=== PATIENT | female | born 1965 | race Caucasian/White ===

== ENCOUNTER 2017-02-27 09:40 | Outpatient (CLI) | payer MEDICARE, OTHER ==
[~2017-02-27 09:40] MED LIST: AMLO5TAB2 GT; ATOR10TA GT; ATOR20TA GT; CARV12.52 GT; CLON0.1T GT; CLON0.1T14 GT; HEPA500013 SQ; Hydralazine Hcl GT; INSU100I19 SQ; INSU100V28 IJ; LEVE100S GT; LOSA50TA21 GT; Losartan Potassium GT; METO25TA20 GT; NUT.237L67 GT; OMEP20CA10 GT
== END 2017-02-27 23:59 | disposition home or self-care (01) ==
LOC: CT 09:40
DX: S42.391D Other fracture of shaft of right humerus, subsequent encounter for fracture with routine healing (principal); S72.492D Other fracture of lower end of left femur, subsequent encounter for closed fracture with routine healing; M85.88 Other specified disorders of bone density and structure, other site; X58.XXXD Exposure to other specified factors, subsequent encounter
CPT/HCPCS: 73200-TC; 73700-TC

== ENCOUNTER 2017-12-13 13:33 | Emergency (ER) | payer MEDICARE, OTHER ==
[~2017-12-13] VITALS: Ht 149.9 cm; Wt 95.3 kg
[2017-12-13 13:49] VITALS: BP 120/45
--- NOTE | 2017-12-13 13:50 | NUR ---
BIBPA DT LOW BLOOD PRESSURE. PATIENT RECEIVED NOT IN DISTRESS,. VENT AND TRACHE DEPENDENT. AFEBRILE. VSS
[2017-12-13] MEDS ORDERED: CEFEPIME 1 GM in IV D5W 50 ML IV ONE (14:00)
[2017-12-13] MEDS ORDERED: IV NS 0.9% 1,000 ML BAG IV ONE (14:00)
[2017-12-13 14:04] LABS: BASOPHILS % (AUTO) 0.3 % (0.0-2.0); EOSINOPHILS % (AUTO) 0.5 % (0.0-6.0); HEMATOCRIT 32 % (33-45); HEMOGLOBIN 10.4 g/dL (11.5-14.8); LYMPHOCYTES # (AUTO) 1.3 /CMM (0.8-4.8); LYMPHOCYTES % (AUTO) 14.9 % (20.0-44.0); MEAN CORPUSCULAR HEMOGLOBIN 32 PG (26.0-33.0); MEAN CORPUSCULAR HGB CONC 33 g/dl (31.0-36.0); MEAN CORPUSCULAR VOLUME 98 fL (82-100); MONOCYTES % (AUTO) 11.6 % (2.0-12.0); NEUTROPHILS # (AUTO) 6.4 /CMM (1.8-8.9); NEUTROPHILS % (AUTO) 72.7 % (43.0-81.0); PLATELET COUNT (AUTO) 101 /CMM (150-450); RED BLOOD CELL COUNT(AUTO) 3.21 MIL/uL (4.0-5.2); WHITE BLOOD COUNT (AUTO) 8.7 K/uL (4.3-11.0)
[2017-12-13 14:13] LABS: CALCIUM, SERUM 8.8 mg/dL (8.5-10.1); CARBON DIOXIDE 24 mmol/L (21-32); CHLORIDE 96 mmol/L (98-107); CREATININE 4.2 mg/dL (0.6-1.3); GLUCOSE 159 mg/dL (74-106); POTASSIUM 3.9 mmol/L (3.5-5.1); SODIUM SERUM 132 mmol/L (136-145); UREA NITROGEN, BLOOD 77 mg/dL (7-18)
[2017-12-13 14:18] LABS: ALANINE AMINOTRANSFERASE 32 U/L (12-78); ALBUMIN 3.2 g/dL (3.4-5.0); ALKALINE PHOSPHATASE 327 U/L (46-116); ASPARTATE AMINOTRANSFERASE 21 U/L (15-37); BILIRUBIN,DIRECT 0.1 mg/dL (0.0-0.2); BILIRUBIN,TOTAL 0.4 mg/dL (0.2-1.0); INR 0.98 (0.85-1.15); TOTAL PROTEIN, SERUM 7.8 g/dL (6.4-8.2)
[2017-12-13 14:20] LABS: TROPONIN I < 0.017 ng/mL (0.00-0.056)
[2017-12-13] MEDS ORDERED: LOSA25TA13 GT (14:46)
[2017-12-13] MEDS ORDERED: AMIN30LI4 GT (14:46)
[2017-12-13] MEDS ORDERED: ERGO500014 GT (14:46)
[2017-12-13] MEDS ORDERED: CHOL4PAC9 GT (14:46)
[2017-12-13] MEDS ORDERED: AMLO5TAB2 GT (14:46)
[2017-12-13] MEDS ORDERED: HYDR-552 GT (14:46)
[2017-12-13] MEDS ORDERED: HYDR-4077 GT (14:46)
[2017-12-13] MEDS ORDERED: BLOO-668 IN (14:46)
[2017-12-13] MEDS ORDERED: METO25TA3 GT (14:46)
[2017-12-13] MEDS ORDERED: ATOR10TA GT (14:46)
[2017-12-13] MEDS ORDERED: INSU100V7 SQ (14:46)
[2017-12-13] MEDS ORDERED: IPRA3AMP23 IH ×2 (14:46)
[2017-12-13] MEDS ORDERED: VIT1TABL44 GT (14:46)
[2017-12-13] MEDS ORDERED: INSU100V3 SQ (14:46)
[2017-12-13] MEDS ORDERED: SENN-167 GT (14:46)
--- NOTE | 2017-12-13 15:24 | NUR ---
[facility]FFIN [facility]ON[facility] PLACED TRANSPORT FOR WILL CALL WITH RT TRIP NUMBER [id number]
--- NOTE | 2017-12-13 15:31 | NUR ---
CALLED [facility] WILL CALL FOR RT TRANSPORT TO [facility] ETA 1700
--- NOTE | 2017-12-13 15:36 | NUR ---
TRANSPORTATION ETA 1700
[2017-12-13 15:43] LABS: APPEARANCE,URINE Turbid (CLEAR); BILIRUBIN,URINE SMALL (NEGATIVE); BLOOD, URINE Large Ery/uL (NEGATIVE); COLOR,URINE Brown (YELLOW); KETONES,URINE Negative (NEGATIVE); LEUKOCYTE ESTERASE ,URINE Large (NEGATIVE); NITRITE, URINE Negative (NEGATIVE); PROTEIN,URINE >=300 mg/dl (NEGATIVE); UGLUCOSE 250 MG/DL mg/dL (NEGATIVE); UROBILINOGEN,URINE 0.2 EU/dL (0.2)
[2017-12-13 15:46] VITALS: BP 120/79
[2017-12-13 16:52] LABS: BACTERIA,URINE Many /HPF (None Seen); SQUAMOUS EPITHELIAL CELL,UR Many /HPF (None Seen)
[2017-12-13 17:26] VITALS: BP 120/79
--- NOTE | 2017-12-13 17:26 | NUR ---
PATIENT WAS PICKED UP BY [facility]. VSS
== END 2017-12-13 17:27 | disposition home or self-care (01) ==
LOC: ER 13:34
DX: I13.2 Hypertensive heart and chronic kidney disease with heart failure and with stage 5 chronic kidney disease, or end stage renal disease (principal); N18.6 End stage renal disease; N17.9 Acute kidney failure, unspecified; J96.10 Chronic respiratory failure, unspecified whether with hypoxia or hypercapnia; G93.40 Encephalopathy, unspecified; E11.22 Type 2 diabetes mellitus with diabetic chronic kidney disease; Z99.2 Dependence on renal dialysis; Z98.890 Other specified postprocedural states; Z88.2 Allergy status to sulfonamides; Z79.4 Long term (current) use of insulin; Z89.511 Acquired absence of right leg below knee; Z93.0 Tracheostomy status
CPT/HCPCS: 36415; 51701; 71045; 80048; 80076; 81001; 83605; 84484; 85025; 85730; 87040 ×2; 93005; 96365; 99285; A4606; J0692; J7030; J7060; 81000-TC; 87086-TC; Z7610

== ENCOUNTER 2018-10-21 20:18 | Inpatient (IN) | payer MEDICARE, OTHER ==
[~2018-10-21] VITALS: Ht 160 cm; Wt 111.6 kg
[~2018-10-21 20:18] MED LIST changes: +AMIN30LI4 GT; -AMLO5TAB2 GT; +AMLO5TAB9 GT; -ATOR20TA GT; +BLOO-668 IN; -CARV12.52 GT; +CHOL4PAC9 GT; -CLON0.1T14 GT; +ERGO500014 GT; -HEPA500013 SQ; +HYDR-4077 GT; +HYDR-4384 GT; -Hydralazine Hcl GT; -INSU100I19 SQ; -INSU100V28 IJ; +INSU100V3 SQ; +INSU100V7 SQ; +IPRA3AMP23 IH; +LOSA25TA27 GT; -LOSA50TA21 GT; -Losartan Potassium GT; -METO25TA20 GT; +METO25TA3 GT; -OMEP20CA10 GT; +SENN-168 GT; +VIT1TABL44 GT
--- NOTE | 2018-10-21 20:23 | NUR ---
PT BIBPA FROM [facility] FOR LOW BP; PER REPORT PT ONLY FINISHED 1HR OF DIALYSIS, GIVEN BOLUS OF NS; BP IO 80'S; PT AAOX0, -MD YOLANDA AT FOR EVAL
--- NOTE | 2018-10-21 20:51 | NUR ---
RECEIVED PT ON MECH VENT CHIP WELL NO SOB NOTED AT THIS TIME ON CURRENT SETTING WILL CONTINUE TO MONITOR Addendum: 10/21/18 at 2051 by NAZARIO PRABHAKAR RT Amended: Links added.
[2018-10-21] MEDS ORDERED: IV NS 0.9% 500 ML BAG IV ONE (21:00)
[2018-10-21] MEDS ORDERED: AZTREONAM 2 G in IV NS 0.9% 100 ML IV ONE (21:00)
[2018-10-21] MEDS ORDERED: CEFEPIME 1 GM in IV D5W 50 ML IV ONE (21:00)
[2018-10-21 21:34] LABS: BASOPHILS # (AUTO) 0.1 /CMM (0.0-0.2); BASOPHILS % (AUTO) 0.4 % (0.0-2.0); EOSINOPHILS % (AUTO) 1.3 % (0.0-6.0); HEMATOCRIT 24 % (33-45); HEMOGLOBIN 7.9 g/dL (11.5-14.8); LYMPHOCYTES # (AUTO) 1.2 /CMM (0.8-4.8); LYMPHOCYTES % (AUTO) 10.2 % (20.0-44.0); MEAN CORPUSCULAR HGB CONC 33 g/dl (31.0-36.0); MEAN CORPUSCULAR VOLUME 99 fL (82-100); MONOCYTES # (AUTO) 0.7 /CMM (0.1-1.30); MONOCYTES % (AUTO) 6.2 % (2.0-12.0); NEUTROPHILS # (AUTO) 9.5 /CMM (1.8-8.9); NEUTROPHILS % (AUTO) 81.9 % (43.0-81.0); PLATELET COUNT (AUTO) 179 /CMM (150-450); WHITE BLOOD COUNT (AUTO) 11.6 K/uL (4.3-11.0)
[2018-10-21 21:54] LABS: CALCIUM, SERUM 8.5 mg/dL (8.5-10.1); CARBON DIOXIDE 20 mmol/L (21-32); CHLORIDE 101 mmol/L (98-107); CREATININE 4.7 mg/dL (0.6-1.3); GLUCOSE 277 mg/dL (74-106); POTASSIUM 4.4 mmol/L (3.5-5.1); SODIUM SERUM 136 mmol/L (136-145); UREA NITROGEN, BLOOD 79 mg/dL (7-18)
[2018-10-21 22:00] LABS: ALANINE AMINOTRANSFERASE 22 U/L (12-78); ALBUMIN 2.6 g/dL (3.4-5.0); ALKALINE PHOSPHATASE 185 U/L (46-116); ASPARTATE AMINOTRANSFERASE 18 U/L (15-37); BILIRUBIN,DIRECT 0.1 mg/dL (0.0-0.2); BILIRUBIN,TOTAL 0.5 mg/dL (0.2-1.0); TOTAL PROTEIN, SERUM 6.8 g/dL (6.4-8.2)
--- NOTE | 2018-10-21 22:09 | NUR ---
CALLED NURSING [facility] FOR TELE BED
--- NOTE | 2018-10-21 22:10 | NUR ---
TALISHA PICC LINE NURSE CALLED. ETA [id number]
--- NOTE | 2018-10-21 22:11 | NUR ---
CALLED [facility], PAGED DR THOMAS
[2018-10-21 22:24] LABS: OCCULT BLOOD STOOL NEGATIVE (NEGATIVE)
--- NOTE | 2018-10-21 22:34 | NUR ---
REPORT GIVEN TO KALINA CLEMENT FOR KIAH
[2018-10-21 22:45] VITALS: BP 79/57
--- NOTE | 2018-10-21 23:00 | NUR ---
POLICE GUARD NOTE PATIENT ARRIVED ON UNIT FROM ER IN [facility] OBTUNDED, NON VERBAL, OPENS EYES. PATIENT NOTED TO HAVE 20 G IV IN ABDOMEN PATIENT INTACT. MD AWARE AND ORDERED PICC LINE INSERTIONS. TALISHA SIMON ARRIVED AND PLACED TRIPLE LUMEN MIDLINE. PATIENT BATHED MEPILEX APPLIED TO SACRUM. PATIENT WAS SR ON THE TELE MONITOR HR 91. PATIENT BREATHING EVEN AND UNLABORED TOLERATING RX VENT SETTINGS. NO S/S OF RESP DISTRESS. PATIENT NOTED TO BE HYPOTENSIVE MD NOTIFIED PENDING ORDER. BED IN LOWEST LOCKED POSITION, SEIZURE PRECAUTIONS IN PLACE. RN WILL CONTINUE TO MONITOR GIVE CARE ORDERED.
--- NOTE | 2018-10-21 23:05 | NUR ---
PT TRANSPORTED TO 1ST FLOOR VIA [facility] PROTOCOL
[2018-10-21] MEDS ORDERED: NEPRO VAN 237 ML CAN GT SCH (23:30)
[2018-10-21] MEDS ORDERED: DEXTROSE 50%-WATER 50 ML DISP.SYRIN IV PRN (23:30)
[2018-10-21] MEDS ORDERED: IV NS 0.9% 500 ML IV ONE (23:30)
[2018-10-22] VITALS (11 sets, daily range): BP systolic 93–146; BP diastolic 37–80
--- NOTE | 2018-10-22 00:01 | NUR ---
ANDREW HOGAN MD NOTIFIED OF HYPOTENSION 500 ML BOLUS ORDERED Addendum: 10/22/18 at 0004 by KALINA VALDEZ RN Amended: Links added. Addendum: 10/22/18 at 0053 by KALINA VALDEZ RN BP RECHECKED POST ADMINISTRATION 114/37
[2018-10-22] MEDS ORDERED: ACETAMINOPHEN LIQUID 325 MG/10.1 ML UDC GT PRN (00:30)
[2018-10-22] MEDS ORDERED: MORPHINE SULFATE INJ 2 MG/ML DISP.SYRIN IV PRN (00:30)
[2018-10-22] MEDS ORDERED: ONDANSETRON HCL/PF 4 MG/2 ML VIAL IVP PRN (00:30)
[2018-10-22] MEDS: IPRATROPIUM NEB FS 0.5 MG/2.5 ML AMPUL.NEB NEB SCH ×4 (00:50→20:36)
[2018-10-22] MEDS ORDERED: PIPERACILLIN /TAZOBACTAM 2.25 G VIAL IV ONE (00:55)
[2018-10-22] MEDS: BLOOD SUGAR DIAGNOSTIC 1 EACH STRIP IN SCH ×4 (00:57→17:31)
[2018-10-22] MEDS ORDERED: PIPERACILLIN /TAZOBACTAM 2.25 G in IV D5W 50 ML IV ONE (01:00)
[2018-10-22] MEDS ORDERED: NEPRO 1,000 ML BOTTLE GT PRN (01:00)
--- NOTE | 2018-10-22 01:15 | NUR ---
ENVIRONMENTAL SERVICES SUPERVISOR NOTE LAB CALLED TO REPORT CRITICAL LACTIC ACID 2.6, TRENDING DOWN FROM 4 MD WILLIAM AWARE NO NEW ORDERS GIVEN
[2018-10-22] MEDS: NEPRO 1,000 ML BOTTLE GT PRN (01:29)
[2018-10-22] MEDS: INSULIN REGULAR, HUMAN 100 UNIT/ML 3 ML VIAL SQ PRN ×4 (01:41→17:48)
--- NOTE | 2018-10-22 06:33 | NUR ---
STROKE PROGRAM COORDINATOR NOTE PATIENT TOLERATED THE NIGHT WELL, BP WNL AFTER 500 ML BOLUS. PATIENT TEMP WNL. HR 75 SR WITH PVC ON THE MONITOR. RN WILL ENDORSE TO AM POC FOR KIAH.
[2018-10-22 07:04] LABS: ALBUMIN 2.6 g/dL (3.4-5.0); BILIRUBIN,TOTAL 0.3 mg/dL (0.2-1.0); CREATININE 5.1 mg/dL (0.6-1.3); MAGNESIUM 2.6 mg/dL (1.8-2.4); PHOSPHORUS 4.7 mg/dL (2.5-4.9); POTASSIUM 4.6 mmol/L (3.5-5.1); TOTAL PROTEIN, SERUM 6.6 g/dL (6.4-8.2)
[2018-10-22 07:15] LABS: BASOPHILS % (AUTO) 0.4 % (0.0-2.0); EOSINOPHILS % (AUTO) 0.4 % (0.0-6.0); LYMPHOCYTES # (AUTO) 0.9 /CMM (0.8-4.8); LYMPHOCYTES % (AUTO) 10.7 % (20.0-44.0); MEAN CORPUSCULAR HGB CONC 34 g/dl (31.0-36.0); MEAN CORPUSCULAR VOLUME 99 fL (82-100); MONOCYTES # (AUTO) 0.6 /CMM (0.1-1.30); MONOCYTES % (AUTO) 7.1 % (2.0-12.0); NEUTROPHILS # (AUTO) 6.6 /CMM (1.8-8.9); NEUTROPHILS % (AUTO) 81.4 % (43.0-81.0); PLATELET COUNT (AUTO) 143 /CMM (150-450); WHITE BLOOD COUNT (AUTO) 8.2 K/uL (4.3-11.0)
[2018-10-22 07:17] LABS: RED BLOOD CELL COUNT(AUTO) 1.99 MIL/uL (4.0-5.2)
[2018-10-22 07:21] LABS: HEMOGLOBIN 6.7 g/dL (11.5-14.8)
[2018-10-22 07:23] LABS: HEMATOCRIT 20 % (33-45)
--- NOTE | 2018-10-22 07:30 | NUR ---
ELECTRIC SHIPYARD OPERATOR AM NOTES RECEIVED PT IN BED, OBTUNDED, PORTEX 8 TO MECHANICAL VENT, SETTING ORDERED AC 12 TV 500 FIO2 35 P 5, BREATHING EQUAL AND UNLABORED, NOT IN ANY DISTRESS, SR HR 77 ON TELE MONITOR, NO SIGNS OF PAIN, LEFT ABDOMEN G 20 AND VISHNU TRIPLE LUMEN MIDLINE , BOTH FLUSHES WELL, BOTH SITES CLEAR, SEE NURSING FLOWSHEET FOR SKIN ISSUES. WITH RT BKA, NEPRO GTF AT 45 ML/HR ONGOING,ON AT 229 OFF AT 2029, CHECKED FOR PLACEMENT 20 ML RESIDUAL, BED LOW LOCKED, CALL LIGHT WITHIN REACH, WILL CONTINUE TO MONITOR.
[2018-10-22 07:35] LABS: THYROID STIMULATING HORMONE 4.388 uIU/mL (0.358-3.74)
[2018-10-22] MEDS: ALBUTEROL FS 2.5 MG/3 ML VIAL.NEB NEB SCH ×3 (07:44→20:38)
[2018-10-22 08:36] LABS: BAND % (MANUAL) 1 % (0.0-5.0); LYMPHOCYTES % (MANUAL) 11 % (16-48); NEUTROPHILS % (MANUAL) 81 (42-76)
[2018-10-22 08:37] LABS: EOSINOPHILS % (MANUAL) 1 % (0-4); MONOCYTES % (MANUAL) 6 % (0-11.0)
--- NOTE | 2018-10-22 08:50 | NUR ---
MARKING ROOM SUPERVISOR NOTES DR. CASTANON INFORMED RE CRITICAL RESULTS; HEMOGLOBIN 6.7, LACTIC ACID 2.8, TROPONIN 0.022 NEW ORDER TO REPEAT HEMOGLOBIN AT 1000
--- NOTE | 2018-10-22 09:30 | NUR ---
TRANSPORT TANK TECHNICIAN NOTES DUE MEDS GIVEN
[2018-10-22] MEDS: PIPERACILLIN /TAZOBACTAM 2.25 G in IV D5W 50 ML IV SCH ×2 (09:39→17:28)
[2018-10-22] MEDS: FAMOTIDINE (20 MG) 20 MG TABLET GT SCH (09:41)
[2018-10-22] MEDS: SENNOSIDES 8.6 MG TABLET GT SCH ×2 (09:41→17:28)
[2018-10-22] MEDS: VIT B CMPLX 3/FA/VIT C/BIOTIN 1 TAB TABLET GT SCH (09:41)
[2018-10-22] MEDS: CHOLESTYRAMINE/ASPARTAME 4 G/PKT PACKET GT SCH (09:41)
[2018-10-22] MEDS: INSULIN GLARGINE, 100 UNIT/ML CARTRIDGE SQ SCH ×2 (09:43→20:46)
[2018-10-22] MEDS: PROSOURCE / PROSTAT (PYXIS) 30 ML UDC GT SCH ×3 (09:45→20:45)
[2018-10-22 10:14] LABS: HEMOGLOBIN 6.7 g/dL (11.5-14.8)
[2018-10-22] MEDS ORDERED: ACETAMINOPHEN 650 MG/20.3 ML UDC GT PRN (10:30)
--- NOTE | 2018-10-22 10:35 | NUR ---
WOUND CARE CONSULT: PT PRESENTS WITH MULTIPLE SCARS INCLUDING SACRAL SCAR, PRESENT ON ADMISSION. RT BELOW KNEE AMPUTATION STUMP NOTED AND RT THIGH SUTURE NOTED, PRESENT ON ADMISSION. RECOMMENDATIONS MADE FOR SKIN PROTECTION AND DISCUSSED WITH NURSING STAFF. PT NOTED TO HAVE HUGE ABDOMEN. FIRST STEP LOW AIRLOSS MATTRESS ORDERED. WILL SEE PRN. IN AGREEMENT WITH PLAN OF CARE. CURRENT IOANA SCORE IS 10.
--- NOTE | 2018-10-22 10:47 | NUR ---
OUTSIDE SALESPERSON NOTES REPEAT HGB/HCT 6.10/26. PER DR. CASTANON, WAIT FOR NEPHRO FOR EVAL THEN ASK FOR BLOOD TRANSFUSION.
--- NOTE | 2018-10-22 10:52 | NUR ---
NO PEEP PER DR. SNYDER. Addendum: 10/22/18 at 1053 by TRENTON FORD RT Amended: Links added.
[2018-10-22] MEDS ORDERED: Z GUARD REMEDY 2 OZ OINT TP PRN (11:00)
--- NOTE | 2018-10-22 12:34 | NUR ---
DRILLING SUPERINTENDENT NOTES ACCUCHECK DONE. BS 246 MG/DL. 4 UNITS HUM R PER SLIDING SCALE GIVEN.
[2018-10-22] MEDS: Z GUARD REMEDY 2 OZ OINT TP SCH (12:44)
[2018-10-22] MEDS: LEVETIRACETAM SOL (5 ML) 100 MG/ML UDC GT SCH (17:28)
--- NOTE | 2018-10-22 17:37 | NUR ---
EXERCISE RIDER NOTES ACCUCHECK DONE. BS 224 MG/DL. 4 UNITS HUM R PER SLIDING SCALE GIVEN.
--- NOTE | 2018-10-22 19:27 | NUR ---
HEAD KNITTING MACHINE FIXER CLOSING NOTES PT IN BED, OBTUNDED, PORTEX 8 TO MECHANICAL VENT, SETTING ORDERED AC 12 TV 500 FIO2 35 P 0, BREATHING EQUAL AND UNLABORED, NOT IN ANY DISTRESS, SR HR 80s ON TELE MONITOR, NO SIGNS OF PAIN, LEFT ABDOMEN G 20 AND VISHNU TRIPLE LUMEN MIDLINE , BOTH FLUSHES WELL, BOTH SITES CLEAR, WITH RT BKA, NEPRO GTF AT 45 ML/HR ONGOING,ON AT 0 OFF AT 2029, CHECKED FOR PLACEMENT 20 ML RESIDUAL, BED LOW LOCKED, CALL LIGHT WITHIN REACH, PM CARE DONE. TURNED AND REPOSITIONED Q 2HOURS. WILL ENDORSE TO NEXT SHIFT FOR KIAH. ONGOING BLOOD TRANSFUSION RIGHT NOW.
--- NOTE | 2018-10-22 19:30 | NUR ---
TELE/RN NOTES PATIENT IN BED, RESTING COMFORTABLY AT THIS TIME, NO S/S OF ACUTE DISTRESS NOTED. RESPIRATION EVEN AND UNLABORED. NO SOB NOTED. TRACH INTACT, PATENT , CONNECTED TO VENT WITH PRESCRIBED SETTINGS. PATIENT WITH ONGOING BLOOD TRANSFUSION ORDERED. PATIENT TOLERATING WELL. NO S/S OF TRANSFUSION REACTION NOTED AT THIS TIME. G TUBE IN PLACE , PATENT CONNECTED TO FEEDING ORDERED. NO RESIDUAL NOTED AT THIS TIME. PATIENT ON TELE MONITORING WITH SR 87 WITH PVC. HOB KEPT ELEVATED AT ALL THE TIME. L UPPER ARM MIDLINE SITE CLEAN, DRY AND INTACT. FLUSHED WITH NS. SAFETY MAINTAINED, BED AT THE LOWEST POSITION, LOCKED SR UP x3, CALL LIGHT WITHIN EASY REACH. WILL CONTINUE TO MONITOR PATIENT PER PLAN OF CARE
[2018-10-22] MEDS: ATORVASTATIN 10 MG TABLET GT SCH (22:20)
[2018-10-23] VITALS (19 sets, daily range): BP systolic 107–146; BP diastolic 55–88
[2018-10-23] MEDS: BLOOD SUGAR DIAGNOSTIC 1 EACH STRIP IN SCH ×5 (00:35→23:16)
[2018-10-23] MEDS: INSULIN REGULAR, HUMAN 100 UNIT/ML 3 ML VIAL SQ PRN ×4 (00:39→23:19)
[2018-10-23] MEDS: PIPERACILLIN /TAZOBACTAM 2.25 G in IV D5W 50 ML IV SCH ×3 (00:39→16:54)
[2018-10-23] MEDS: IPRATROPIUM NEB FS 0.5 MG/2.5 ML AMPUL.NEB NEB SCH ×4 (01:58→21:24)
[2018-10-23] MEDS: PROSOURCE / PROSTAT (PYXIS) 30 ML UDC GT SCH ×4 (03:00→20:44)
--- NOTE | 2018-10-23 07:00 | NUR ---
TELE/RN NOTES PATIENT IN BED, RESTING COMFORTABLY AT THIS TIME, NO S/S OF ACUTE DISTRESS NOTED. RESPIRATION EVEN AND UNLABORED. NO SOB NOTED. TRACH INTACT, PATENT , CONNECTED TO VENT WITH PRESCRIBED SETTINGS. G TUBE IN PLACE , PATENT CONNECTED TO FEEDING ORDERED. NO RESIDUAL NOTED AT THIS TIME. PATIENT ON TELE MONITORING WITH SR 70 WITH PVC'S. HOB KEPT ELEVATED AT ALL THE TIME. R UPPER ARM MIDLINE SITE CLEAN, DRY AND INTACT. SAFETY MAINTAINED, BED AT THE LOWEST POSITION, LOCKED SR UP x3, CALL LIGHT WITHIN EASY REACH. ENDORSE TO AM SHIFT NURSE FOR KIAH
--- NOTE | 2018-10-23 07:05 | NUR ---
RN NOTES RECEIVED PT ON BED, OBTUNDENT, VENT/ TRACH DEPENDENT, TOLERATING CURRENT VENT SETTING WELL , ON TELE SR WITH PVC'S HR IN 70'S , NEPRO AT 45CC/HR RUNNING VIA GT, NO RESIDUAL NOTED, L UPPER ARM MIDLINE SITE CLEAN,DRY AND INTACT, SR UP x3, CALL LIGHT WITHIN EASY REACH, BED LOCKED AND IN LOWEST POSITION, CONTINUE TO MONITOR.
[2018-10-23 07:21] LABS: BASOPHILS % (AUTO) 0.8 % (0.0-2.0); EOSINOPHILS % (AUTO) 2.1 % (0.0-6.0); LYMPHOCYTES # (AUTO) 1.2 /CMM (0.8-4.8); LYMPHOCYTES % (AUTO) 20.5 % (20.0-44.0); MEAN CORPUSCULAR HGB CONC 34 g/dl (31.0-36.0); MEAN CORPUSCULAR VOLUME 98 fL (82-100); MONOCYTES # (AUTO) 0.6 /CMM (0.1-1.30); MONOCYTES % (AUTO) 9.3 % (2.0-12.0); NEUTROPHILS % (AUTO) 67.3 % (43.0-81.0); PLATELET COUNT (AUTO) 117 /CMM (150-450); WHITE BLOOD COUNT (AUTO) 5.9 K/uL (4.3-11.0)
[2018-10-23 07:32] LABS: RED BLOOD CELL COUNT(AUTO) 1.91 MIL/uL (4.0-5.2)
[2018-10-23 07:38] LABS: HEMATOCRIT 19 % (33-45); HEMOGLOBIN 6.4 g/dL (11.5-14.8)
[2018-10-23 07:49] LABS: CALCIUM, SERUM 8.3 mg/dL (8.5-10.1); CREATININE 5.7 mg/dL (0.6-1.3); POTASSIUM 4.4 mmol/L (3.5-5.1)
[2018-10-23] MEDS: ALBUTEROL FS 2.5 MG/3 ML VIAL.NEB NEB SCH ×3 (07:51→21:24)
[2018-10-23] MEDS: Z GUARD REMEDY 2 OZ OINT TP SCH (07:52)
[2018-10-23 07:55] LABS: BAND % (MANUAL) 1 % (0.0-5.0); EOSINOPHILS % (MANUAL) 1 % (0-4); LYMPHOCYTES % (MANUAL) 30 % (16-48); MONOCYTES % (MANUAL) 7 % (0-11.0); NEUTROPHILS % (MANUAL) 61 (42-76)
[2018-10-23] MEDS: FAMOTIDINE (20 MG) 20 MG TABLET GT SCH (08:11)
[2018-10-23] MEDS: SENNOSIDES 8.6 MG TABLET GT SCH ×2 (08:11→16:54)
[2018-10-23] MEDS: VIT B CMPLX 3/FA/VIT C/BIOTIN 1 TAB TABLET GT SCH (08:11)
[2018-10-23] MEDS: INSULIN GLARGINE, 100 UNIT/ML CARTRIDGE SQ SCH ×2 (08:29→20:29)
--- NOTE | 2018-10-23 08:30 | NUR ---
RN NOTES DR CASTANON NOTIFED REGARDING H/H 6.07/26, ORDER RECEIVED TO TRANSFUSE 2 UNITS OF PRBC'S . VSS STABLE , CONTINUE TO MONITOR.
[2018-10-23] MEDS: CHOLESTYRAMINE/ASPARTAME 4 G/PKT PACKET GT SCH (08:33)
--- NOTE | 2018-10-23 10:07 | NUR ---
PER RADIOLOGY FISTULAGRAM NEED TO BE DONE IN OR WITH VASCULAR,SPOKE WITH DR. CUI AND VERBALIZED HE CANNOT DO FISTULAGRAM IT IS EITHER DO AHD LINE OR TRANSFER OUT PATIENT,RELAYED TO DR. SHANIA RADFORD AND PROVIDED DR. CUI CELL PHONE NUMBER FOR ANY QUESTION.DR. CASTANON ALSO PAGED AWAITS RESPONSE.
--- NOTE | 2018-10-23 12:17 | NUR ---
OBTAINED CONSENT FROM DAUGHTER TO DO PERMACATH PLACEMENT IN AM PER .
--- NOTE | 2018-10-23 13:48 | NUR ---
RN NOTES ONE UNITS OF BLOOD STARTED , VSS STABLE, CONTINUE TO MONITOR.
[2018-10-23] MEDS ORDERED: HEPARIN SODIUM, PORCINE 1,000 UNIT/ML VIAL ONE (14:11)
[2018-10-23] MEDS ORDERED: LIDOCAINE HCL/MPF 1% 30 ML VIAL IJ ONE (14:11)
[2018-10-23] MEDS ORDERED: MIDAZOLAM HCL 2 MG/2ML VIAL ONE (14:17)
--- NOTE | 2018-10-23 14:36 | NUR ---
RN NOTES PT TO OR AT THIS TIME FOR PERMA CATH PLACEMENT. PT STILL RECEIVING BLOOD TRANSFUSION , VSS STABLE
--- NOTE | 2018-10-23 16:03 | NUR ---
RN NOTES PT BACK TO THE ROOM , BP 145/77 HR IN 80'S , O2 SAT 100%, R GROIN HD CATH SITE , CLEAN ,DRY AND INTACT, CONTINUE TO MONITOR .
[2018-10-23] MEDS: LEVETIRACETAM SOL (5 ML) 100 MG/ML UDC GT SCH (16:54)
[2018-10-23] MEDS: NEPRO 1,000 ML BOTTLE GT PRN (16:56)
--- NOTE | 2018-10-23 18:33 | NUR ---
RN NOTES PT RECEIVING SECOND UNIT OF PRBC. LEFT PERMA CATH SITE CLEAN,DRY AND INTACT , DR RADFORD NOTIFED THAT IF PT NEEDED TO BE DIALYZED TONIGHT . WILL ENDORSE TO [facility] RECEIVER NURSE FOR CONTINUITY OF CARE .
--- NOTE | 2018-10-23 19:38 | NUR ---
TELE/RN NOTES PATIENT IN BED, RESTING COMFORTABLY AT THIS TIME, NO S/S OF ACUTE DISTRESS NOTED. RESPIRATION EVEN AND UNLABORED. NO SOB NOTED. TRACH INTACT, PATENT , CONNECTED TO VENT WITH PRESCRIBED SETTINGS. PATIENT WITH ONGOING BLOOD TRANSFUSION ORDERED. PATIENT TOLERATING WELL. NO S/S OF TRANSFUSION REACTION NOTED AT THIS TIME. G TUBE IN PLACE , PATENT CONNECTED TO FEEDING ORDERED. NO RESIDUAL NOTED AT THIS TIME. PATIENT ON TELE MONITORING WITH SR WITH PVC. HOB KEPT ELEVATED AT ALL THE TIME. L UPPER ARM MIDLINE SITE CLEAN, DRY AND INTACT. FLUSHED WITH NS. SAFETY MAINTAINED, BED AT THE LOWEST POSITION, LOCKED SR UP x3, CALL LIGHT WITHIN EASY REACH. WILL CONTINUE TO MONITOR PATIENT PER PLAN OF CARE
[2018-10-23] MEDS: ATORVASTATIN 10 MG TABLET GT SCH (21:33)
[2018-10-24] VITALS: BP 120/76
[2018-10-24] MEDS: PIPERACILLIN /TAZOBACTAM 2.25 G in IV D5W 50 ML IV SCH ×3 (00:33→17:47)
[2018-10-24] MEDS: IPRATROPIUM NEB FS 0.5 MG/2.5 ML AMPUL.NEB NEB SCH ×4 (01:36→20:38)
[2018-10-24 04:00] VITALS: BP 126/61
[2018-10-24] MEDS: PROSOURCE / PROSTAT (PYXIS) 30 ML UDC GT SCH ×4 (04:32→21:55)
[2018-10-24] MEDS: BLOOD SUGAR DIAGNOSTIC 1 EACH STRIP IN SCH ×4 (05:41→23:49)
--- NOTE | 2018-10-24 06:44 | NUR ---
TELE/RN NOTES PATIENT IN BED, RESTING COMFORTABLY AT THIS TIME, NO S/S OF ACUTE DISTRESS NOTED. RESPIRATION EVEN AND UNLABORED. NO SOB NOTED. TRACH INTACT, PATENT , CONNECTED TO VENT WITH PRESCRIBED SETTINGS. G TUBE IN PLACE , PATENT CONNECTED TO FEEDING ORDERED. NO RESIDUAL NOTED AT THIS TIME. PATIENT ON TELE MONITORING WITH SR 79 WITH PVC. HOB KEPT ELEVATED AT ALL THE TIME. L UPPER ARM MIDLINE SITE CLEAN, DRY AND INTACT. FLUSHED WITH NS. SAFETY MAINTAINED, BED AT THE LOWEST POSITION, LOCKED SR UP x3, CALL LIGHT WITHIN EASY REACH. WILL ENDORSE TO AM SHIFT NURSE FOR KIAH
[2018-10-24 07:18] LABS: BASOPHILS % (AUTO) 0.7 % (0.0-2.0); EOSINOPHILS % (AUTO) 2.6 % (0.0-6.0); HEMATOCRIT 24 % (33-45); LYMPHOCYTES # (AUTO) 0.9 /CMM (0.8-4.8); LYMPHOCYTES % (AUTO) 13.9 % (20.0-44.0); MEAN CORPUSCULAR HGB CONC 34 g/dl (31.0-36.0); MEAN CORPUSCULAR VOLUME 94 fL (82-100); MONOCYTES # (AUTO) 0.5 /CMM (0.1-1.30); MONOCYTES % (AUTO) 8.1 % (2.0-12.0); NEUTROPHILS # (AUTO) 4.7 /CMM (1.8-8.9); NEUTROPHILS % (AUTO) 74.7 % (43.0-81.0); PLATELET COUNT (AUTO) 122 /CMM (150-450); RED BLOOD CELL COUNT(AUTO) 2.57 MIL/uL (4.0-5.2); WHITE BLOOD COUNT (AUTO) 6.2 K/uL (4.3-11.0)
--- NOTE | 2018-10-24 07:30 | NUR ---
RN AM SHIFT NOTE PATIENT IN BED NON RESPONSIVE. LEFT UPPER MIDLINE PATENT AND FLUSHING. ON VENTILATOR SATURATION WNL. G TUBE PATENT AND FLUSHING WELL. LABORATORY CALLED HEMOGLOBIN AND HEMATORCRIT INCREASED THIS AM, WAS TRANSFUSED YESTERDAY NO ACTIVE BLEEDING. OCCULT STOOL IS NEGATIVE. HD TO BE DONE TODAY. SAFETY MEASURES IN PLACE, SIDE RAILS UP CONTINUE TO MONITOR SAFETY.
[2018-10-24 07:35] LABS: CALCIUM, SERUM 8.1 mg/dL (8.5-10.1); CREATININE 6.4 mg/dL (0.6-1.3); POTASSIUM 4.8 mmol/L (3.5-5.1)
[2018-10-24 07:37] LABS: HEMOGLOBIN 8.3 g/dL (11.5-14.8)
[2018-10-24 08:00] VITALS: BP 124/69
[2018-10-24] MEDS: ALBUTEROL FS 2.5 MG/3 ML VIAL.NEB NEB SCH ×3 (08:02→20:37)
[2018-10-24] MEDS: SENNOSIDES 8.6 MG TABLET GT SCH ×2 (09:34→17:48)
[2018-10-24] MEDS: VIT B CMPLX 3/FA/VIT C/BIOTIN 1 TAB TABLET GT SCH (09:34)
[2018-10-24] MEDS: FAMOTIDINE (20 MG) 20 MG TABLET GT SCH (09:34)
[2018-10-24] MEDS: Z GUARD REMEDY 2 OZ OINT TP SCH (09:35)
[2018-10-24] MEDS: CHOLESTYRAMINE/ASPARTAME 4 G/PKT PACKET GT SCH (09:42)
[2018-10-24] MEDS: INSULIN GLARGINE, 100 UNIT/ML CARTRIDGE SQ SCH ×2 (09:44→23:49)
[2018-10-24 12:00] VITALS: BP_SYST 132; BP_DIAS 60; BP_DIAS 76
[2018-10-24] MEDS: INSULIN REGULAR, HUMAN 100 UNIT/ML 3 ML VIAL SQ PRN ×2 (12:30→23:51)
[2018-10-24 16:00] VITALS: BP_SYST 119; BP_SYST 132; BP_DIAS 60; BP_DIAS 71
[2018-10-24] MEDS: LEVETIRACETAM SOL (5 ML) 100 MG/ML UDC GT SCH (17:48)
--- NOTE | 2018-10-24 19:32 | NUR ---
TELE/RN INITIAL NOTES PATIENT IN BED, RESTING COMFORTABLY AT THIS TIME, NO S/S OF ACUTE DISTRESS NOTED. RESPIRATION EVEN AND UNLABORED, ON GOING DIALYSIS AT BEDSIDE. NO SOB NOTED. TRACH INTACT, PATENT , CONNECTED TO VENT WITH PRESCRIBED SETTINGS. G TUBE IN PLACE , PATENT CONNECTED TO FEEDING ORDERED. NO RESIDUAL NOTED AT THIS TIME. PATIENT ON TELE MONITORING WITH SR 70'S WITH PVC. HOB KEPT ELEVATED AT ALL THE TIME. L UPPER ARM MIDLINE SITE CLEAN, DRY AND INTACT. FLUSHED WITH NS. SAFETY MAINTAINED, BED AT THE LOWEST POSITION, LOCKED SR UP x3, CALL LIGHT WITHIN EASY REACH. WILL CONT' TO MONITOR.
[2018-10-24 20:00] VITALS: BP 107/67
--- NOTE | 2018-10-24 21:05 | NUR ---
RT NOTE PATIENT RECEIVED TRACHED ON MECHANICAL VENTILATION. AMBU BAG @ BEDSIDE. TX GIVEN, NO ADVERSE REACTIONS NOTED. SX DONE, TRACH SECURED AND PATENT. ALARMS ON AND AUDIBLE. VENT PLUGGED TO RED OUTLET. CONT. POX @ BEDSIDE. NO SOB NOTED. HME REPLACED. WILL MONITOR. Addendum: 10/24/18 at 2337 by NANCY BURGESS RT Amended: Links added.
[2018-10-24] MEDS: ATORVASTATIN 10 MG TABLET GT SCH (21:54)
[2018-10-25 00:23] VITALS: BP 115/92
[2018-10-25] MEDS: PIPERACILLIN /TAZOBACTAM 2.25 G in IV D5W 50 ML IV SCH ×3 (00:36→16:24)
[2018-10-25] MEDS: IPRATROPIUM NEB FS 0.5 MG/2.5 ML AMPUL.NEB NEB SCH ×4 (01:29→19:23)
[2018-10-25 04:00] VITALS: BP 103/65
[2018-10-25] MEDS: NEPRO 1,000 ML BOTTLE GT PRN (05:36)
[2018-10-25] MEDS: INSULIN REGULAR, HUMAN 100 UNIT/ML 3 ML VIAL SQ PRN ×3 (06:03→17:54)
[2018-10-25] MEDS: BLOOD SUGAR DIAGNOSTIC 1 EACH STRIP IN SCH ×3 (06:04→17:53)
[2018-10-25] MEDS: PROSOURCE / PROSTAT (PYXIS) 30 ML UDC GT SCH ×4 (06:04→21:34)
--- NOTE | 2018-10-25 06:31 | NUR ---
COMMUNICATIONS PROGRAM MANAGER CLOSING NOTE ENDORSED PT TO AM RN FOR KIAH, S/P HD, 1.5 CC O/P TAKEN OUT, VS STABLE, KEPT CLEAN AND DRY.
[2018-10-25 07:11] LABS: CREATININE 4.8 mg/dL (0.6-1.3); POTASSIUM 4.7 mmol/L (3.5-5.1)
--- NOTE | 2018-10-25 07:15 | NUR ---
RN OPENING NOTES REPORT GIVEN BY MANAGER RETAIL SALES RN. PT IS TOLERATING FEEDING OF NEPRO RUNNING AT 45ML/HR VIA G-TUBE. PT HAD DIALYSIS YESTERDAY 10/24/18 WITH A REPORT STATING THAT 1500 WAS REMOVED. PT IS TOLERATING VENT SETTINGS. PT IS OBTUNDED AND OPENS EYES WHEN SPOKEN TO. A&OX 1. PT HAS VISHNU MIDLINE TKO AT 10 ML/HR. BED IS LOCKED AND IN LOWEST POSITION WILL CONTINUE TO MONITOR.
[2018-10-25 07:20] LABS: BASOPHILS % (AUTO) 0.5 % (0.0-2.0); EOSINOPHILS % (AUTO) 1.7 % (0.0-6.0); HEMATOCRIT 25 % (33-45); HEMOGLOBIN 8.5 g/dL (11.5-14.8); LYMPHOCYTES # (AUTO) 0.8 /CMM (0.8-4.8); LYMPHOCYTES % (AUTO) 16.1 % (20.0-44.0); MEAN CORPUSCULAR HGB CONC 34 g/dl (31.0-36.0); MEAN CORPUSCULAR VOLUME 96 fL (82-100); MONOCYTES # (AUTO) 0.5 /CMM (0.1-1.30); MONOCYTES % (AUTO) 9.4 % (2.0-12.0); NEUTROPHILS # (AUTO) 3.7 /CMM (1.8-8.9); NEUTROPHILS % (AUTO) 72.3 % (43.0-81.0); PLATELET COUNT (AUTO) 114 /CMM (150-450); WHITE BLOOD COUNT (AUTO) 5.1 K/uL (4.3-11.0)
[2018-10-25 08:00] VITALS: BP 144/64
[2018-10-25] MEDS: ALBUTEROL FS 2.5 MG/3 ML VIAL.NEB NEB SCH ×3 (08:45→19:23)
[2018-10-25] MEDS: VIT B CMPLX 3/FA/VIT C/BIOTIN 1 TAB TABLET GT SCH (09:52)
[2018-10-25] MEDS: SENNOSIDES 8.6 MG TABLET GT SCH ×2 (09:52→16:23)
[2018-10-25] MEDS: FAMOTIDINE (20 MG) 20 MG TABLET GT SCH (09:52)
[2018-10-25] MEDS: Z GUARD REMEDY 2 OZ OINT TP SCH (09:54)
--- NOTE | 2018-10-25 09:56 | NUR ---
WOUND CARE CONSULT: PT SEEN FOR RT MEDIAL THIGH OPEN AREA WITH WEEPING SEROUS DRAINAGE. PT WAS ADMITTED WITH RT THIGH ACCESS GRAFT FOR HEMODIALYSIS AND SUTURE WITH SCARRING WAS NOTED ON ADMISSION. PT HAD PROCEDURE BY DR CUI AND LEFT THIGH PERMACATH WAS PLACED. PLASTIC SURGERY CONSULT REQUESTED PER DR CASTANON. DR KUMAR NOTIFIED OF SURGICAL CONSULT. DEFER TO SURGEON FOR WOUND TREATMENT PLAN. ALL SKIN PROTECTION MEASURES IN PLACE AND DISCUSSED WITH NURSING STAFF. PT ON FIRST STEP MILLICENT RUST. WILL SEE PRN. Addendum: 10/25/18 at 1000 by SUKHDEV GODINEZ WNDNU Amended: Links added.
[2018-10-25] MEDS: INSULIN GLARGINE, 100 UNIT/ML CARTRIDGE SQ SCH (09:57)
[2018-10-25] MEDS: CHOLESTYRAMINE/ASPARTAME 4 G/PKT PACKET GT SCH (11:01)
[2018-10-25 12:00] VITALS: BP 141/62
[2018-10-25 16:00] VITALS: BP 148/68
[2018-10-25] MEDS: LEVETIRACETAM SOL (5 ML) 100 MG/ML UDC GT SCH (16:23)
--- NOTE | 2018-10-25 18:39 | NUR ---
RN NOTES BLADDER SCAN DONE SHOWED MINIMAL URINE IN BLADDER. 56 ML WAS SHOWN IN BLADDER SCAN.
--- NOTE | 2018-10-25 18:41 | NUR ---
RN CLOSING NOTES PT IS RESTING IN BED WITH G-TUBE FEEDING AT 45 ML/HR WITH NO RESIDUAL. PT IS TOLERATING VENT SETTINGS AND O2 SATURATION AT 100%. PT IS SR ON COMPLIANCE ADVISOR HR 76. SKIN AND SAFETY MEASURES INTACT WILL ENDORSE CONTINUITY OF CARE TO RADIATOR CORE TESTER RN.
[2018-10-25 20:23] VITALS: BP 106/58
[2018-10-25] MEDS: ATORVASTATIN 10 MG TABLET GT SCH (21:34)
[2018-10-26 00:20] VITALS: BP 112/60
[2018-10-26] MEDS: PIPERACILLIN /TAZOBACTAM 2.25 G in IV D5W 50 ML IV SCH ×3 (00:24→17:53)
[2018-10-26] MEDS: INSULIN GLARGINE, 100 UNIT/ML CARTRIDGE SQ SCH ×3 (00:35→23:15)
[2018-10-26] MEDS: BLOOD SUGAR DIAGNOSTIC 1 EACH STRIP IN SCH ×5 (00:35→23:15)
[2018-10-26] MEDS: INSULIN REGULAR, HUMAN 100 UNIT/ML 3 ML VIAL SQ PRN ×4 (00:36→23:17)
[2018-10-26] MEDS: IPRATROPIUM NEB FS 0.5 MG/2.5 ML AMPUL.NEB NEB SCH ×4 (01:06→19:31)
[2018-10-26 04:43] VITALS: BP 109/46
[2018-10-26] MEDS: PROSOURCE / PROSTAT (PYXIS) 30 ML UDC GT SCH ×4 (04:50→21:19)
[2018-10-26] MEDS: NEPRO 1,000 ML BOTTLE GT PRN (05:44)
[2018-10-26 06:29] LABS: BASOPHILS % (AUTO) 0.5 % (0.0-2.0); EOSINOPHILS % (AUTO) 2.8 % (0.0-6.0); HEMATOCRIT 23 % (33-45); HEMOGLOBIN 7.9 g/dL (11.5-14.8); LYMPHOCYTES # (AUTO) 0.7 /CMM (0.8-4.8); LYMPHOCYTES % (AUTO) 15.9 % (20.0-44.0); MEAN CORPUSCULAR HGB CONC 34 g/dl (31.0-36.0); MEAN CORPUSCULAR VOLUME 95 fL (82-100); MONOCYTES # (AUTO) 0.5 /CMM (0.1-1.30); MONOCYTES % (AUTO) 10.4 % (2.0-12.0); NEUTROPHILS # (AUTO) 3.1 /CMM (1.8-8.9); NEUTROPHILS % (AUTO) 70.4 % (43.0-81.0); PLATELET COUNT (AUTO) 106 /CMM (150-450); RED BLOOD CELL COUNT(AUTO) 2.43 MIL/uL (4.0-5.2); WHITE BLOOD COUNT (AUTO) 4.4 K/uL (4.3-11.0)
--- NOTE | 2018-10-26 06:53 | NUR ---
NETWORK DEVELOPMENT COORDINATOR CLOSING NOTE ENDORSED TO AM RN FOR KIAH, PT FOR HD TODAY, VS STABLE.
[2018-10-26 06:58] LABS: CALCIUM, SERUM 8.4 mg/dL (8.5-10.1); CREATININE 5.5 mg/dL (0.6-1.3); POTASSIUM 4.5 mmol/L (3.5-5.1)
--- NOTE | 2018-10-26 07:30 | NUR ---
RN NOTES RECEIVED PATIENT ON BED, WITH SPONTANEOUS EYE OPENING. NON VERBAL. NOT ON ANY FORM OF DISTRESS. TRACH TO VENT . TOLERATING CURRENT VENT SETTING. NO SOB NOTED. SR ON THE MONITOR WITH HR ON THE 70'S. PATIENT ON GTF OF NEPHRO RUNNING AT 40/HR . PLACEMENT VERIFIED THROUGH AUSCULTATION AND ASPIRATING GASTRIC RESIDUAL. GT CLOGGED INITIALLY. NO RESIDUAL NOTED AT THIS TIME. IV SITE NOTED ON THE VISHNU: MIDLINE, IN PLACE AND PATENT ON FLUSHING, DRESSING CDI, NO SIGN OF INFILTRATION OF INFECTION NOTED AT THIS TIME. ASPIRATION AND SAFETY MEASURES OBSERVED AND MAINTAINED. HOB KEPT ELEVATED.BED AT THE LOWEST AND LOCKED POSITION, SR UP x3, CALL LIGHT WITHIN EASY REACH. WILL CONTINUE TO MONITOR AND ANTICIPATE NEEDS.
[2018-10-26] MEDS: ALBUTEROL FS 2.5 MG/3 ML VIAL.NEB NEB SCH ×3 (07:46→19:31)
[2018-10-26 08:00] VITALS: BP 154/78
[2018-10-26] MEDS: SENNOSIDES 8.6 MG TABLET GT SCH ×2 (09:21→17:46)
[2018-10-26] MEDS: FAMOTIDINE (20 MG) 20 MG TABLET GT SCH (09:21)
[2018-10-26] MEDS: VIT B CMPLX 3/FA/VIT C/BIOTIN 1 TAB TABLET GT SCH (09:21)
[2018-10-26] MEDS: CHOLESTYRAMINE/ASPARTAME 4 G/PKT PACKET GT SCH (09:21)
[2018-10-26] MEDS: Z GUARD REMEDY 2 OZ OINT TP SCH (09:23)
[2018-10-26 10:25] LABS: BASOPHILS % (AUTO) 1.1 % (0.0-2.0); EOSINOPHILS % (AUTO) 2.7 % (0.0-6.0); HEMATOCRIT 25 % (33-45); HEMOGLOBIN 8.3 g/dL (11.5-14.8); LYMPHOCYTES # (AUTO) 0.7 /CMM (0.8-4.8); LYMPHOCYTES % (AUTO) 15.6 % (20.0-44.0); MEAN CORPUSCULAR HGB CONC 34 g/dl (31.0-36.0); MEAN CORPUSCULAR VOLUME 95 fL (82-100); MONOCYTES # (AUTO) 0.4 /CMM (0.1-1.30); MONOCYTES % (AUTO) 8.6 % (2.0-12.0); NEUTROPHILS # (AUTO) 3.1 /CMM (1.8-8.9); PLATELET COUNT (AUTO) 105 /CMM (150-450); RED BLOOD CELL COUNT(AUTO) 2.57 MIL/uL (4.0-5.2); WHITE BLOOD COUNT (AUTO) 4.3 K/uL (4.3-11.0)
[2018-10-26 12:00] VITALS: BP 106/57
[2018-10-26 16:00] VITALS: BP_SYST 153; BP_SYST 165; BP_DIAS 76; BP_DIAS 94
[2018-10-26] MEDS: LEVETIRACETAM SOL (5 ML) 100 MG/ML UDC GT SCH (17:46)
[2018-10-26] MEDS ORDERED: LACTULOSE 10 G/15 ML UDC (PYXIS) PO PRN (18:00)
--- NOTE | 2018-10-26 19:15 | NUR ---
POULTRY INSEMINATOR OPENING NOTES RECEIVED PATIENT IN BED, WITH SPONTANEOUS EYE OPENING, NONVERBAL. TRACH TO VENT, SETTINGS ORDERED, TOLERATING WELL. NO SOB NOTED, RR EVEN AND UNLABORED, SATURATING 98%. NOTED PATIENT WITH A LOT OF MOUTH SECRETIONS, WILL SUCTION NEEDED. ON TELE MONITOR SR WITH HR ON THE 70'S. PATIENT ON GTF OF NEPHRO RUNNING AT 45ML/HR. PLACEMENT VERIFIED THROUGH AUSCULTATION AND ASPIRATING GASTRIC RESIDUAL, MINIMAL RESIDUAL NOTED AT THIS TIME. IV SITE NOTED ON THE VISHNU MIDLINE, FLUSHING AND PATENT, DRESSING CDI, NO SIGN OF INFILTRATION OF INFECTION NOTED. SAFETY MEASURES AND ASPIRATION PRECAUTIONS MAINTAINED; HOB KEPT ELEVATED. BED LOCKED AND IN LOWEST POSITION, SR UP X3, CALL LIGHT WITHIN EASY REACH. WILL CONTINUE TO MONITOR PATIENT.
--- NOTE | 2018-10-26 19:17 | NUR ---
RN NOTES ENDORSED FOR CONTINUITY OF CARE. NOT ON ANY FORM OF DISTRESS. NO ACUTE CHANGES WITHIN THE SHIFT. ALL NURSING NEEDS ATTENDED AND MET. SAFETY MEASURES IN PLACE AT ALL TIMES. CALL LIGHT WITHIN REACH
[2018-10-26 20:00] VITALS: BP 151/79
[2018-10-26] MEDS: ATORVASTATIN 10 MG TABLET GT SCH (21:19)
[2018-10-27] VITALS (7 sets, daily range): BP systolic 130–161; BP diastolic 54–69
[2018-10-27] MEDS: IPRATROPIUM NEB FS 0.5 MG/2.5 ML AMPUL.NEB NEB SCH ×4 (01:28→19:34)
[2018-10-27] MEDS: PROSOURCE / PROSTAT (PYXIS) 30 ML UDC GT SCH ×4 (02:21→21:17)
[2018-10-27] MEDS: BLOOD SUGAR DIAGNOSTIC 1 EACH STRIP IN SCH ×3 (06:31→18:15)
[2018-10-27] MEDS: CLONIDINE HCL 0.1 MG TABLET GT PRN (06:32)
[2018-10-27] MEDS: INSULIN REGULAR, HUMAN 100 UNIT/ML 3 ML VIAL SQ PRN ×3 (06:33→18:16)
[2018-10-27] MEDS: NEPRO 1,000 ML BOTTLE GT PRN (06:33)
[2018-10-27 07:13] LABS: CALCIUM, SERUM 8.5 mg/dL (8.5-10.1); CREATININE 4.8 mg/dL (0.6-1.3); POTASSIUM 4.7 mmol/L (3.5-5.1)
--- NOTE | 2018-10-27 07:25 | NUR ---
BUSINESS INTEGRATION MANAGER CLOSING NOTES NO ACUTE CHANGES THROUGHOUT SHIFT. ALL MD ORDERS ATTENDED. ALL NEEDS ANTICIPATED AND MET. ENDORSED TO AM RN FOR KIAH.
--- NOTE | 2018-10-27 07:30 | NUR ---
RN NOTES RECEIVED PATIENT IN BED. NOT ON ANY FORM OF DISTRESS. NO INDICATION OF PAIN. TOLERATING VENT SETTINGS, NO SHORTNESS OF BREATH NOTED AT THIS TIME. TOLERATING FEEDING WELL. HEAD OF BED KEPT ELEVATED. SAFETY MEASURES OBSERVED AND MAINTAINED. WILL CONTINUE TO MONITOR AND ANTICIPATE NEEDS
[2018-10-27] MEDS: ALBUTEROL FS 2.5 MG/3 ML VIAL.NEB NEB SCH ×3 (07:37→19:34)
[2018-10-27] MEDS: PIPERACILLIN /TAZOBACTAM 2.25 G in IV D5W 50 ML IV SCH ×3 (08:37)
[2018-10-27] MEDS: CHOLESTYRAMINE/ASPARTAME 4 G/PKT PACKET GT SCH (08:38)
[2018-10-27] MEDS: FAMOTIDINE (20 MG) 20 MG TABLET GT SCH (08:39)
[2018-10-27] MEDS: SENNOSIDES 8.6 MG TABLET GT SCH ×2 (08:39→17:28)
[2018-10-27] MEDS: VIT B CMPLX 3/FA/VIT C/BIOTIN 1 TAB TABLET GT SCH (08:39)
[2018-10-27] MEDS: Z GUARD REMEDY 2 OZ OINT TP SCH (09:23)
[2018-10-27] MEDS: INSULIN GLARGINE, 100 UNIT/ML CARTRIDGE SQ SCH ×2 (09:23→21:25)
[2018-10-27] MEDS: LEVETIRACETAM SOL (5 ML) 100 MG/ML UDC GT SCH (17:28)
--- NOTE | 2018-10-27 19:30 | NUR ---
CABINET MOUNTER NOTE: RECEIVED PT ON BED OBTUNDED WITH NO APPARENT DISTRESS NOTED. NO FACIAL GRIMACING OR ANY SIGNS OF PAIN NOTED. ON [facility] VENT, SETTINGS ORDERED. SINUS RHYTHM ON TELE MONITOR HR 79BPM. GTF INTACT AND PATENT, PT ABLE TO TOLERATE WELL. HEAD OF BED KEPT ELEVATED. LEFT UPPER ARM MIDLINE INTACT AND PATENT, FLUSHING WELL. KEPT CLEAN, DRY AND COMFORTABLE. SAFETY AND FALL PRECAUTIONS OBSERVED AND MAINTAINED. WILL CONTINUE TO MONITOR PT.
[2018-10-27] MEDS ORDERED: ERGOCALCIFEROL (VITAMIN D 2) 50,000 UNIT CAPSULE GT SCH (21:00)
[2018-10-27] MEDS: ATORVASTATIN 10 MG TABLET GT SCH (21:17)
[2018-10-28] VITALS (9 sets, daily range): BP systolic 130–169; BP diastolic 64–87
[2018-10-28] MEDS: BLOOD SUGAR DIAGNOSTIC 1 EACH STRIP IN SCH ×4 (00:05→17:08)
[2018-10-28] MEDS: INSULIN REGULAR, HUMAN 100 UNIT/ML 3 ML VIAL SQ PRN ×3 (00:10→12:49)
[2018-10-28] MEDS: IPRATROPIUM NEB FS 0.5 MG/2.5 ML AMPUL.NEB NEB SCH ×3 (01:41→13:14)
[2018-10-28] MEDS: PROSOURCE / PROSTAT (PYXIS) 30 ML UDC GT SCH ×3 (03:34→15:30)
--- NOTE | 2018-10-28 06:40 | NUR ---
MUTUAL FUND ANALYST NOTE: NO CHANGES NOTED THROUGHOUT THE SHIFT. NO APPARENT DISTRESS NOTED. NO FACIAL GRIMACING OR ANY SIGNS OF PAIN NOTED. ON [facility] VENT, NO SOB NOTED. ON TELE MONITOR SINUS RHYTHM HR 77BPM. LEFT UPPER ARM PICC LINE INTACT AND PATENT, FLUSHING WELL. KEPT CLEAN, DRY AND COMFORTABLE. SAFETY AND FALL PRECAUTIONS OBSERVED AND MAINTAINED. WILL ENDORSE TO DAY SHIFT RN FOR CONTINUITY OF CARE.
--- NOTE | 2018-10-28 07:00 | NUR ---
GLOBAL COORDINATOR NOTES RECEIVED PATIENT ON BED OBTUNDED WITH NO APPARENT DISTRESS NOTED. NO FACIAL GRIMACING OR ANY SIGNS OF PAIN NOTED. ON [facility] VENT, SETTINGS ORDERED. SINUS RHYTHM ON TELE MONITOR HR 72 WITH PVCs. GTF INTACT AND PATENT, ABLE TO TOLERATE WELL, 5 CC RESIDUAL. HEAD OF BED KEPT ELEVATED. LEFT UPPER ARM MIDLINE INTACT AND PATENT, FLUSHING WELL. KEPT CLEAN, DRY AND COMFORTABLE. SAFETY AND FALL PRECAUTIONS OBSERVED AND MAINTAINED. BED IN LOW/LOCKED POSITION, SIDERAILS UP. WILL CONTINUE TO MONITOR ACCORDINGLY
[2018-10-28 07:27] LABS: BASOPHILS % (AUTO) 0.5 % (0.0-2.0); EOSINOPHILS % (AUTO) 3.8 % (0.0-6.0); HEMATOCRIT 24 % (33-45); HEMOGLOBIN 8.2 g/dL (11.5-14.8); LYMPHOCYTES # (AUTO) 0.9 /CMM (0.8-4.8); LYMPHOCYTES % (AUTO) 16.8 % (20.0-44.0); MEAN CORPUSCULAR HGB CONC 34 g/dl (31.0-36.0); MEAN CORPUSCULAR VOLUME 95 fL (82-100); MONOCYTES # (AUTO) 0.7 /CMM (0.1-1.30); MONOCYTES % (AUTO) 12.5 % (2.0-12.0); NEUTROPHILS # (AUTO) 3.5 /CMM (1.8-8.9); NEUTROPHILS % (AUTO) 66.4 % (43.0-81.0); PLATELET COUNT (AUTO) 114 /CMM (150-450); RED BLOOD CELL COUNT(AUTO) 2.56 MIL/uL (4.0-5.2); WHITE BLOOD COUNT (AUTO) 5.2 K/uL (4.3-11.0)
[2018-10-28 07:34] LABS: CALCIUM, SERUM 8.5 mg/dL (8.5-10.1); CREATININE 5.6 mg/dL (0.6-1.3); MAGNESIUM 2.8 mg/dL (1.8-2.4); PHOSPHORUS 6.4 mg/dL (2.5-4.9); POTASSIUM 5.2 mmol/L (3.5-5.1)
[2018-10-28] MEDS: ALBUTEROL FS 2.5 MG/3 ML VIAL.NEB NEB SCH ×2 (07:41→13:14)
[2018-10-28] MEDS: VIT B CMPLX 3/FA/VIT C/BIOTIN 1 TAB TABLET GT SCH (08:42)
[2018-10-28] MEDS: FAMOTIDINE (20 MG) 20 MG TABLET GT SCH (08:42)
[2018-10-28] MEDS: SENNOSIDES 8.6 MG TABLET GT SCH ×2 (08:43→16:26)
[2018-10-28] MEDS: CHOLESTYRAMINE/ASPARTAME 4 G/PKT PACKET GT SCH (08:44)
[2018-10-28] MEDS: Z GUARD REMEDY 2 OZ OINT TP SCH (09:14)
[2018-10-28] MEDS: INSULIN GLARGINE, 100 UNIT/ML CARTRIDGE SQ SCH (09:19)
[2018-10-28] MEDS: LEVETIRACETAM SOL (5 ML) 100 MG/ML UDC GT SCH (16:27)
[2018-10-28] MEDS: CLONIDINE HCL 0.1 MG TABLET GT PRN (17:01)
--- NOTE | 2018-10-28 17:34 | NUR ---
RT NOTE PT REMAINS MECHANICALLY VENTILATED VIA CUFFED TRACHEOSTOMY TUBE. CUFF INFLATED. TRACH TUBE MIDLINE AND SECURE. VENTILATOR SETTINGS PRESCRIBED. ALARMS SET PER PROTOCOL AND AUDIBLE. VENT PLUGGED IN TO RED OUTLET. AMBU BAG AT BED SIDE. NO DISTRESS NOTED. Addendum: 10/28/18 at 1735 by ABEL ECHOLS RT Amended: Links added.
--- NOTE | 2018-10-28 18:03 | NUR ---
DISCHARGED PATIENT IN STABLE CONDITION PICKED UP BY AMBULANCE CREW. DC PAPERWORK HANDED TO jewel diameter gauger. REPORT GIVEN TO RACQUEL REID FROM [facility], DC INSTRUCTIONS GIVEN, VERBALIZED UNDERSTANDING. NO BELONGINGS. VISHNU PICC LINE REMOVED, CATHETER INTACT, APPLIED PRESSURE, NO COMPLICATIONS. REMOVED NAME BAND. PHOTO WAS TAKEN AND PLACED ON CHART.
== END 2018-10-28 18:05 | disposition short-term general hospital (02) | DRG 870 ==
LOC: ER 20:19 → TELE1 22:24 → TELE-TD 23:16 → TELE1 23:23
PROVIDERS: ADMIT Internal Medicine; ATTEND Family Medicine
PROC: 5A1955Z Respiratory Ventilation, Greater than 96 Consecutive Hours (ICD-10-PCS; principal; 2018-10-22)
PROC: 30233N1 Transfusion of Nonautologous Red Blood Cells into Peripheral Vein, Percutaneous Approach (ICD-10-PCS; 2018-10-22)
PROC: 0JHL3XZ Insertion of Tunneled Vascular Access Device into Right Upper Leg Subcutaneous Tissue and Fascia, Percutaneous Approach (ICD-10-PCS; 2018-10-23)
PROC: 02HV33Z Insertion of Infusion Device into Superior Vena Cava, Percutaneous Approach (ICD-10-PCS; 2018-10-23)
PROC: B518YZA Fluoroscopy of Superior Vena Cava using Other Contrast, Guidance (ICD-10-PCS; 2018-10-23)
PROC: 5A1D70Z Performance of Urinary Filtration, Intermittent, Less than 6 Hours Per Day (ICD-10-PCS; 2018-10-23)
DX: A41.9 Sepsis, unspecified organism (principal); N18.6 End stage renal disease; J69.0 Pneumonitis due to inhalation of food and vomit; E43 Unspecified severe protein-calorie malnutrition; T82.898A Other specified complication of vascular prosthetic devices, implants and grafts, initial encounter; L03.115 Cellulitis of right lower limb; I13.2 Hypertensive heart and chronic kidney disease with heart failure and with stage 5 chronic kidney disease, or end stage renal disease; J96.11 Chronic respiratory failure with hypoxia; D68.59 Other primary thrombophilia; Z99.11 Dependence on respirator [ventilator] status; J96.10 Chronic respiratory failure, unspecified whether with hypoxia or hypercapnia; Z68.41 Body mass index [BMI] 40.0-44.9, adult; G93.40 Encephalopathy, unspecified; I50.20 Unspecified systolic (congestive) heart failure; K92.2 Gastrointestinal hemorrhage, unspecified; I95.9 Hypotension, unspecified; Z93.0 Tracheostomy status; Z99.2 Dependence on renal dialysis; Z86.73 Personal history of transient ischemic attack (TIA), and cerebral infarction without residual deficits; E78.5 Hyperlipidemia, unspecified; G40.909 Epilepsy, unspecified, not intractable, without status epilepticus; E11.22 Type 2 diabetes mellitus with diabetic chronic kidney disease; E11.65 Type 2 diabetes mellitus with hyperglycemia; E11.51 Type 2 diabetes mellitus with diabetic peripheral angiopathy without gangrene; D63.8 Anemia in other chronic diseases classified elsewhere; D69.6 Thrombocytopenia, unspecified; I25.10 Atherosclerotic heart disease of native coronary artery without angina pectoris; M81.0 Age-related osteoporosis without current pathological fracture; Z93.1 Gastrostomy status; R13.0 Aphagia; Z88.1 Allergy status to other antibiotic agents; Z79.4 Long term (current) use of insulin; Z79.899 Other long term (current) drug therapy; Z79.51 Long term (current) use of inhaled steroids; R13.10 Dysphagia, unspecified; E66.01 Morbid (severe) obesity due to excess calories; Z89.611 Acquired absence of right leg above knee; E86.1 Hypovolemia; K21.9 Gastro-esophageal reflux disease without esophagitis; Z74.01 Bed confinement status; Z74.09 Other reduced mobility; I95.3 Hypotension of hemodialysis; Y84.1 Kidney dialysis as the cause of abnormal reaction of the patient, or of later complication, without mention of misadventure at the time of the procedure; Y92.89 Other specified places as the place of occurrence of the external cause; S71.111A Laceration without foreign body, right thigh, initial encounter; X58.XXXA Exposure to other specified factors, initial encounter; Y92.9 Unspecified place or not applicable
CPT/HCPCS: 31720; 36415; 71045-TC; 74018; 80048-TC; 80053-TC; 80061-TC; 80076-TC; 82272-TC; 82962-TC; 83540-TC; 83605-TC; 83735-TC; 84100-TC; 84443-TC; 84484-TC; 85025-TC; 85027-TC; 85730-TC; 86706; 86850-TC; 86921-TC; 87040-TC; 87081-TC; 87340; 90935-TC; 94002-TC; 94003-TC; 94760-TC; 94762-TC; A4623; A7526; C1750; C1751; C1769; G0378; J0690; J0692; J1644; J1815; J1953; J2250; J2543; J2704; J3490; J7030; J7040; J7050; J7060; P9016-BL

== ENCOUNTER 2019-03-13 08:52 | Inpatient (IN) | payer MEDICARE, OTHER ==
[~2019-03-13] VITALS: Ht 152.4 cm; Wt 103.4 kg
--- NOTE | 2019-03-13 08:53 | NUR ---
PT BIB PA FROM [facility] FOR BLEEDING DIALYSIS ACCESS, PT IS AAOX1 WITHDRAWS TO PAIN, ON MECH VENT VIA TRACH, HOOKED TO MONITOR, KEPT RESTED AND COMFORTABLE, WILL CONTINUE TO MONITOR.
--- NOTE | 2019-03-13 09:13 | NUR ---
SEEN AND EXAMINED BY .
--- NOTE | 2019-03-13 09:20 | NUR ---
IV LINE ESTABLISHED, BLOOD DRAWN AND SENT TO LAB.
[2019-03-13 09:30] LABS: BASOPHILS # (AUTO) 0.1 /CMM (0.0-0.2); BASOPHILS % (AUTO) 0.7 % (0.0-2.0); EOSINOPHILS % (AUTO) 3.1 % (0.0-6.0); HEMATOCRIT 34 % (33-45); HEMOGLOBIN 11.4 g/dL (11.5-14.8); LYMPHOCYTES # (AUTO) 1.6 /CMM (0.8-4.8); LYMPHOCYTES % (AUTO) 19.7 % (20.0-44.0); MEAN CORPUSCULAR HGB CONC 33 g/dl (31.0-36.0); MEAN CORPUSCULAR VOLUME 105 fL (82-100); MONOCYTES # (AUTO) 0.9 /CMM (0.1-1.30); MONOCYTES % (AUTO) 10.9 % (2.0-12.0); NEUTROPHILS # (AUTO) 5.2 /CMM (1.8-8.9); NEUTROPHILS % (AUTO) 65.6 % (43.0-81.0); PLATELET COUNT (AUTO) 148 /CMM (150-450); RED BLOOD CELL COUNT(AUTO) 3.26 MIL/uL (4.0-5.2); WHITE BLOOD COUNT (AUTO) 7.9 K/uL (4.3-11.0)
[2019-03-13 09:37] LABS: CALCIUM, SERUM 9.5 mg/dL (8.5-10.1); CREATININE 6.3 mg/dL (0.6-1.3); POTASSIUM 5.2 mmol/L (3.5-5.1)
[2019-03-13] MEDS ORDERED: GLUC1KIT IM (10:01)
[2019-03-13] MEDS ORDERED: HEPA500013 SQ (10:01)
[2019-03-13] MEDS ORDERED: EPOE1VIA15 SQ (10:01)
[2019-03-13] MEDS ORDERED: MIDO10TA GT (10:06)
[2019-03-13] MEDS ORDERED: CALC-343 GT (10:06)
[2019-03-13] MEDS ORDERED: OMEP40CA13 GT (10:08)
[2019-03-13] MEDS ORDERED: ACET160E36 GT (10:21)
[2019-03-13] MEDS ORDERED: ZINC100T2 GT (10:24)
[2019-03-13] MEDS ORDERED: SEVE0.8P3 PO (10:24)
[2019-03-13] MEDS ORDERED: ASCO-310 GT (10:24)
[2019-03-13] MEDS ORDERED: ASCORBIC ACID GT (10:26)
--- NOTE | 2019-03-13 12:08 | NUR ---
NURSING SUP GAVE BED 101.
--- NOTE | 2019-03-13 12:13 | NUR ---
RAMIREZ AT BEDSIDE FOR EVAL.
--- NOTE | 2019-03-13 12:25 | NUR ---
CALLED [facility] FOR REPORT NURSE NOT AVAILABLE.
--- NOTE | 2019-03-13 13:00 | NUR ---
REPORT GIVEN TO RACQUEL DENT FOR KIAH.
--- NOTE | 2019-03-13 13:35 | NUR ---
RT PATIENT RECEIVED TRACH'D ON [facility] VENT. RAIL SWITCH OPERATOR DONE. SPARE TRACH AND AMBU BAG AT BEDSIDE. VENT PLUGGED INTO RED OUTLET. TRACH SECURED AND PATENT. SUCTIONED AND MONITORED PRN. NO SOB OR SIGNS OF DISTRESS NOTED. WILL CONTINUE TO MONITOR FOR ANY CHANGES. Addendum: 03/14/19 at 0652 by NASREEN SHANE RT Amended: Links added.
[2019-03-13] MEDS ORDERED: Z GUARD REMEDY 2 OZ OINT TP PRN (14:00)
[2019-03-13] MEDS ORDERED: EPOETIN ALFA (40,000 UNIT) 40,000 UNIT/ML VIAL SQ PRN (14:00)
[2019-03-13] MEDS ORDERED: CLONIDINE HCL 0.1 MG TABLET GT PRN (14:00)
[2019-03-13] MEDS ORDERED: MAGNESIUM HYDROXIDE 30 ML UDC PO PRN (14:00)
[2019-03-13] MEDS ORDERED: ONDANSETRON HCL/PF 4 MG/2 ML VIAL IVP PRN (14:00)
[2019-03-13] MEDS ORDERED: ACETAMINOPHEN 325 MG TABLET PO PRN (14:00)
[2019-03-13] MEDS ORDERED: MAG HYDROX/AL HYDROX/SIMETH 30 ML UDC PO PRN (14:00)
[2019-03-13] MEDS ORDERED: DEXTROSE 50%-WATER 50 ML DISP.SYRIN IV PRN (14:00)
[2019-03-13] MEDS: MIDODRINE HCL (5MG) 5 MG TABLET GT SCH ×2 (14:30→21:55)
--- NOTE | 2019-03-13 14:50 | NUR ---
RECEIVED REPORT FROM FILIPE FOR KIAH
[2019-03-13] MEDS: CALCIUM CARBONATE 500 MG TAB.CHEW GT SCH (15:20)
--- NOTE | 2019-03-13 15:32 | NUR ---
PT IN BED, OBTUNDED, ON MECH VENT VIA TRACH, TOLERATING SETTINGS WELL, NO SIGNS OF RESPIRATORY DISTRESS NOTED. ON TELE MONITOR SHOWING SINUS RHYTHM. IV SITE ON LEFT HAND G20, INTACT, PATENT, WITH SALINE LOCK IN PLACE. G-TUBE IN PLACE, COVERED WITH CLEAN DRESSING, OBTAINED 50CC OF GREEN RESIDUAL, G-TUBE FLUSHES WELL, CONFIRMED PLACEMENT WITH AUSCULTATION. LEFT FEMORAL HD CATH IN PLACE, SECURED WITH DRESSING. COMPLETED HEAD TO TOE ASSESSMENT. RIGHT FOOT BKA, MULTIPLE SCARS, OPEN WOUND ON SACRUM. PHOTOS TAKEN, PLACED INTO CHART, WOUND CONSULT ORDERED, WOUND CARE PLAN INITIATED. NOTED DISTENDED ABDOMEN, TENDER AND NOT FIRM ON PALPATION, HYPOACTIVE BOWEL SOUNDS AUSCULTATED IN ALL FOUR QUADRANTS. PT'S ADMITTING WEIGHT 230 LBS MEASURED ON BED SCALE. BED IN LOW POSITION, LOCKED, CALL LIGHT WITHIN REACH, HOB ELEVATED, CALL LIGHT WITHIN REACH.
--- NOTE | 2019-03-13 15:50 | NUR ---
CALLED PT'S DAUGHTER JAMES TO NOTIFY OF PT'S ADMISSION TO [place]. OBTAINED TELEPHONE CONSENT FOR HEMODIALYSIS.
--- NOTE | 2019-03-13 15:50 | NUR ---
HD NURSE BY BEDSIDE, BEGAN HEMODIALYSIS
[2019-03-13] MEDS: CHOLESTYRAMINE/ASPARTAME 4 G/PKT PACKET GT SCH (16:21)
[2019-03-13] MEDS: PROSOURCE / PROSTAT (PYXIS) 30 ML UDC GT SCH (16:36)
[2019-03-13] MEDS: LEVETIRACETAM SOL (5 ML) 100 MG/ML UDC GT SCH (16:36)
[2019-03-13] MEDS: SEVELAMER CARBONATE 0.8 GM POWD.PACK PO SCH (16:36)
[2019-03-13] MEDS: SENNOSIDES 8.6 MG TABLET GT SCH (16:36)
[2019-03-13] MEDS ORDERED: BLOOD SUGAR DIAGNOSTIC 1 EACH STRIP IN SCH (17:30)
--- NOTE | 2019-03-13 18:49 | NUR ---
LENIN RN CLOSING NOTE PT IN BED, OBTUNDED, ON MECH VENT VIA TRACH, TOLERATING SETTINGS WELL, NO SIGNS OF RESPIRATORY DISTRESS NOTED. ON TELE MONITOR SHOWING SINUS RHYTHM. IV SITE ON LEFT HAND G20, INTACT, PATENT, WITH SALINE LOCK IN PLACE. HD OUTPUT 1000ML. BED IN LOW POSITION, LOCKED, CALL LIGHT WITHIN REACH, HOB ELEVATED. WILL ENDORSE TO NOC SHIFT NURSE.
[2019-03-13] MEDS ORDERED: ALBUTEROL FS 2.5 MG/0.5 ML VIAL.NEB NEB PRN (19:30)
[2019-03-13 20:00] VITALS: BP 138/76
[2019-03-13 20:00] LABS: HEMOGLOBIN 10.9 g/dL (11.5-14.8)
[2019-03-13] MEDS: NEPRO 1,000 ML BOTTLE GT SCH (20:02)
[2019-03-13] MEDS: ALBUTEROL FS 2.5 MG/0.5 ML VIAL.NEB NEB SCH (20:03)
--- NOTE | 2019-03-13 21:05 | NUR ---
REPORT GIVEN TO SHAYNA CLEMENT FOR KIAH
[2019-03-13] MEDS: LOSARTAN POTASSIUM 25 MG TABLET GT SCH (21:54)
[2019-03-13] MEDS: hydrALAZINE HCL 50 MG TABLET GT SCH (21:55)
[2019-03-13] MEDS: ATORVASTATIN 10 MG TABLET GT SCH (21:56)
[2019-03-13 22:00] VITALS: BP 148/97
[2019-03-13] MEDS: INSULIN GLARGINE, 100 UNIT/ML CARTRIDGE SQ SCH (22:11)
[2019-03-14] VITALS (7 sets, daily range): BP systolic 110–162; BP diastolic 61–87
[2019-03-14] MEDS: INSULIN REGULAR, HUMAN 100 UNIT/ML 3 ML VIAL SQ PRN ×4 (00:08→22:53)
[2019-03-14] MEDS: ALBUTEROL FS 2.5 MG/0.5 ML VIAL.NEB NEB SCH ×4 (02:06→19:56)
[2019-03-14] MEDS: hydrALAZINE HCL 50 MG TABLET GT SCH ×3 (05:16→21:24)
[2019-03-14] MEDS: MIDODRINE HCL (5MG) 5 MG TABLET GT SCH ×3 (06:33→22:42)
--- NOTE | 2019-03-14 07:38 | NUR ---
MEDICAL CARE ADMINISTRATOR CLOSING NOTES PATIENT IN BED WITH NO DISTRESS. TOLERATING VENT WELL. GTUBE FEEDINGS IS BEING TOLERATED AT 40ML/HR. ALL SAFETY PRECATIONS HAVE BEEN APPLIED. ENDORSED PATIENT TO MORNING SHIFT NURSE FOR KIAH/
[2019-03-14 07:52] LABS: BASOPHILS % (AUTO) 0.5 % (0.0-2.0); EOSINOPHILS % (AUTO) 2.9 % (0.0-6.0); HEMATOCRIT 33 % (33-45); HEMOGLOBIN 11.1 g/dL (11.5-14.8); LYMPHOCYTES # (AUTO) 1.4 /CMM (0.8-4.8); LYMPHOCYTES % (AUTO) 23.1 % (20.0-44.0); MEAN CORPUSCULAR HGB CONC 33 g/dl (31.0-36.0); MEAN CORPUSCULAR VOLUME 104 fL (82-100); MONOCYTES # (AUTO) 0.6 /CMM (0.1-1.30); MONOCYTES % (AUTO) 9.5 % (2.0-12.0); PLATELET COUNT (AUTO) 123 /CMM (150-450); WHITE BLOOD COUNT (AUTO) 6.2 K/uL (4.3-11.0)
[2019-03-14 08:10] LABS: CALCIUM, SERUM 9.6 mg/dL (8.5-10.1); CREATININE 6.7 mg/dL (0.6-1.3); MAGNESIUM 2.8 mg/dL (1.8-2.4); PHOSPHORUS 3.6 mg/dL (2.5-4.9)
[2019-03-14 08:15] LABS: THYROID STIMULATING HORMONE 2.547 uIU/mL (0.358-3.74)
[2019-03-14] MEDS: SEVELAMER CARBONATE 0.8 GM POWD.PACK PO SCH ×2 (08:34→16:59)
[2019-03-14] MEDS: CHOLESTYRAMINE/ASPARTAME 4 G/PKT PACKET GT SCH (08:34)
[2019-03-14] MEDS: ASCORBIC ACID 500 MG TABLET GT SCH (08:34)
[2019-03-14] MEDS: VIT B CMPLX 3/FA/VIT C/BIOTIN 1 TAB TABLET GT SCH (08:34)
[2019-03-14] MEDS: CALCIUM CARBONATE 500 MG TAB.CHEW GT SCH (08:34)
[2019-03-14] MEDS: PANTOPRAZOLE 40 MG/PACK PACK GT SCH (08:35)
[2019-03-14] MEDS: ZINC SULFATE 220 MG CAPSULE GT SCH (08:35)
[2019-03-14] MEDS: METOPROLOL SUCCINATE 25 MG TAB.SR.24H GT SCH (08:35)
[2019-03-14] MEDS: AMLODIPINE BESYLATE 5 MG TABLET GT SCH (08:35)
[2019-03-14] MEDS: SENNOSIDES 8.6 MG TABLET GT SCH ×2 (08:35→16:59)
[2019-03-14] MEDS: LOSARTAN POTASSIUM 25 MG TABLET GT SCH ×2 (08:36→21:24)
[2019-03-14] MEDS: BLOOD SUGAR DIAGNOSTIC 1 EACH STRIP IN SCH ×3 (13:33→23:01)
[2019-03-14] MEDS: HYDROGEL DRESSING 90 GM TUBE TP SCH (13:34)
[2019-03-14] MEDS: PROSOURCE / PROSTAT (PYXIS) 30 ML UDC GT SCH ×3 (14:21→16:59)
[2019-03-14] MEDS: LEVETIRACETAM SOL (5 ML) 100 MG/ML UDC GT SCH (16:59)
--- NOTE | 2019-03-14 18:39 | NUR ---
PT IN BED, OBTUNDED, ON MECH VENT VIA TRACH. NO SIGNS OF RESPIRATORY DISTRESS NOTED. ON TELE MONITOR SINUS RHYTHM . IV SITE ON LEFT HAND G20, INTACT, PATENT, WITH SALINE LOCK IN PLACE. HD FOR TOMORROW. FEEDING TO CONTINUE AT 2000 PM, FEEDING TOLERATED WELL WITH RESIDUAL 20ML. BED IN LOW POSITION, LOCKED, CALL LIGHT WITHIN REACH, HOB ELEVATED. WILL ENDORSE TO NEXT SIFT FOR SOS. SHIFT NURSE.
--- NOTE | 2019-03-14 20:00 | NUR ---
PATHOLOGY ASSISTANT NOTES PT IN BED, OBTUNDED,REMAINS ON MECH VENT ON AC SETTING WELL TOLERATED. NO SIGNS OF RESPIRATORY DISTRESS NOTED. ON TELE MONITOR SINUS RHYTHM . IV SITE ON LEFT HAND G20, INTACT, PATENT, WITH SALINE LOCK IN PLACE. V/S STABLE AFEBRILE , HD john. FEEDING STARTED AT 2000 PM, FEEDING TOLERATED WELL WITH NO RESIDUAL . SUCTION SECRETION DONE AND PRN. BED IN LOW POSITION, LOCKED, CALL LIGHT WITHIN REACH, HOB ELEVATED AT ALL TIMES, FOR ASPIRATION PRECAUTION.KEPT PTS CLEAN DRY AND COMFORTABLE .
--- NOTE | 2019-03-14 20:50 | NUR ---
PT RCVD TRACH'D ON MECHANICAL VENT WITH CHARTED SETTINGS. PT CHIP TX WELL. SX DONE. PT TRACH IS PATENT AND SECURE. VENT ALARMS APPEAR TO BE FUNCTIONING PROPERLY. VENT PLUGGED INTO RED OUTLET. AMBU BAG AT BEDSIDE. NO SOB NOTED. Addendum: 03/14/19 at 2050 by ERICA DORSEY RT Amended: Links added.
--- NOTE | 2019-03-14 21:00 | NUR ---
DOOR TO DOOR SALESMAN NOTES ALL DUE MEDS GIVEN ORDERED ,WITH NO ASE NOTED .
[2019-03-14] MEDS: ATORVASTATIN 10 MG TABLET GT SCH (21:24)
[2019-03-14] MEDS: INSULIN GLARGINE, 100 UNIT/ML CARTRIDGE SQ SCH (22:55)
--- NOTE | 2019-03-14 23:00 | NUR ---
ARCHIVES DIRECTOR NOTES BLOOD SUGAR FOR IS 158MG/DL LANTUS 40 UNITS GIVEN ORDERED AND 2 UNITS OF REGULAR INSULIN GIVEN PER SLIDING SCALE.PTS ON GT FEEDING.
[2019-03-15] VITALS: BP 131/68
[2019-03-15] MEDS: ALBUTEROL FS 2.5 MG/0.5 ML VIAL.NEB NEB SCH ×4 (01:29→19:56)
[2019-03-15 04:00] VITALS: BP 110/61
[2019-03-15] MEDS: hydrALAZINE HCL 50 MG TABLET GT SCH ×3 (05:46→22:53)
[2019-03-15] MEDS: MIDODRINE HCL (5MG) 5 MG TABLET GT SCH ×3 (05:55→22:30)
[2019-03-15] MEDS: INSULIN REGULAR, HUMAN 100 UNIT/ML 3 ML VIAL SQ SCH ×3 (06:17→17:43)
[2019-03-15] MEDS: BLOOD SUGAR DIAGNOSTIC 1 EACH STRIP IN SCH ×3 (06:19→17:39)
[2019-03-15] MEDS: NEPRO 1,000 ML BOTTLE GT SCH (07:19)
[2019-03-15 08:00] VITALS: BP 116/64
[2019-03-15] MEDS: AMLODIPINE BESYLATE 5 MG TABLET GT SCH (09:00)
[2019-03-15] MEDS: LOSARTAN POTASSIUM 25 MG TABLET GT SCH ×2 (09:00→22:52)
[2019-03-15] MEDS: METOPROLOL SUCCINATE 25 MG TAB.SR.24H GT SCH (09:00)
[2019-03-15] MEDS: SEVELAMER CARBONATE 0.8 GM POWD.PACK PO SCH ×2 (09:40→17:03)
[2019-03-15] MEDS: SENNOSIDES 8.6 MG TABLET GT SCH ×2 (09:40→17:03)
[2019-03-15] MEDS: ZINC SULFATE 220 MG CAPSULE GT SCH (09:40)
[2019-03-15] MEDS: CALCIUM CARBONATE 500 MG TAB.CHEW GT SCH (09:40)
[2019-03-15] MEDS: PANTOPRAZOLE 40 MG/PACK PACK GT SCH (09:40)
[2019-03-15] MEDS: ASCORBIC ACID 500 MG TABLET GT SCH (09:40)
[2019-03-15] MEDS: VIT B CMPLX 3/FA/VIT C/BIOTIN 1 TAB TABLET GT SCH (09:40)
[2019-03-15] MEDS: HYDROGEL DRESSING 90 GM TUBE TP SCH (09:41)
[2019-03-15] MEDS: PROSOURCE / PROSTAT (PYXIS) 30 ML UDC GT SCH ×3 (09:42→17:03)
[2019-03-15] MEDS: CHOLESTYRAMINE/ASPARTAME 4 G/PKT PACKET GT SCH (09:45)
[2019-03-15] MEDS ORDERED: NEPRO 1,000 ML BOTTLE GT SCH (10:30)
[2019-03-15 10:33] LABS: BASOPHILS % (AUTO) 0.6 % (0.0-2.0); EOSINOPHILS % (AUTO) 2.9 % (0.0-6.0); HEMATOCRIT 33 % (33-45); HEMOGLOBIN 10.5 g/dL (11.5-14.8); LYMPHOCYTES # (AUTO) 1.9 /CMM (0.8-4.8); MEAN CORPUSCULAR HGB CONC 32 g/dl (31.0-36.0); MEAN CORPUSCULAR VOLUME 107 fL (82-100); MONOCYTES # (AUTO) 0.6 /CMM (0.1-1.30); MONOCYTES % (AUTO) 9.4 % (2.0-12.0); NEUTROPHILS # (AUTO) 3.9 /CMM (1.8-8.9); NEUTROPHILS % (AUTO) 59.1 % (43.0-81.0); PLATELET COUNT (AUTO) 110 /CMM (150-450); RED BLOOD CELL COUNT(AUTO) 3.05 MIL/uL (4.0-5.2); WHITE BLOOD COUNT (AUTO) 6.7 K/uL (4.3-11.0)
[2019-03-15] MEDS ORDERED: NEPRO 1,000 ML BOTTLE GT PRN (10:35)
[2019-03-15 10:41] LABS: CALCIUM, SERUM 9.4 mg/dL (8.5-10.1); POTASSIUM 4.7 mmol/L (3.5-5.1)
[2019-03-15 11:21] LABS: CREATININE 7.8 mg/dL (0.6-1.3)
[2019-03-15 12:00] VITALS: BP 122/72
[2019-03-15 16:00] VITALS: BP 110/68
[2019-03-15] MEDS: LEVETIRACETAM SOL (5 ML) 100 MG/ML UDC GT SCH (17:03)
--- NOTE | 2019-03-15 19:00 | NUR ---
RN note morning and afternoon blood pressure meds held due to pending hd today. per Bill, he will dialyze the pt today. bp was stable and wnl.
[2019-03-15 20:00] VITALS: BP 116/90
[2019-03-15] MEDS: ATORVASTATIN 10 MG TABLET GT SCH (22:52)
[2019-03-16 00:05] VITALS: BP 151/113
[2019-03-16] MEDS: BLOOD SUGAR DIAGNOSTIC 1 EACH STRIP IN SCH ×3 (00:16→11:26)
[2019-03-16] MEDS: INSULIN GLARGINE, 100 UNIT/ML CARTRIDGE SQ SCH (00:22)
[2019-03-16] MEDS: INSULIN REGULAR, HUMAN 100 UNIT/ML 3 ML VIAL SQ SCH ×3 (00:24→11:28)
[2019-03-16] MEDS: ALBUTEROL FS 2.5 MG/0.5 ML VIAL.NEB NEB SCH ×3 (02:04→13:46)
[2019-03-16 04:00] VITALS: BP 137/97
[2019-03-16] MEDS: MIDODRINE HCL (5MG) 5 MG TABLET GT SCH ×2 (05:38→14:09)
[2019-03-16] MEDS: hydrALAZINE HCL 50 MG TABLET GT SCH ×2 (05:40→12:30)
--- NOTE | 2019-03-16 05:58 | NUR ---
MED NOTE: MIDODRINE HELD PT BP IS 137/97
--- NOTE | 2019-03-16 07:24 | NUR ---
SPORTS INFORMATION DIRECTOR NOTE RECEIVED PATIENT IN BED , OBTUNDED,WITH TRACH TO VENT SETTING ORDERED , AMBU BAG AT HOB AT AL TIME , ON TELE MONITOR SR HR 98 . ON G TUBE FEEDING ORDERED, KEEP HOB ELEVATED AT ALL TIME , LT HAND HL INTACT , WILL CONT TO MONITOR CLOSELY , BED IN LOWEST AND LOCKED POSITION , CALL LIGHT WITHIN REACH
[2019-03-16 08:00] VITALS: BP 123/59
[2019-03-16] MEDS: VIT B CMPLX 3/FA/VIT C/BIOTIN 1 TAB TABLET GT SCH (09:05)
[2019-03-16] MEDS: CALCIUM CARBONATE 500 MG TAB.CHEW GT SCH (09:05)
[2019-03-16] MEDS: ZINC SULFATE 220 MG CAPSULE GT SCH (09:06)
[2019-03-16] MEDS: METOPROLOL SUCCINATE 25 MG TAB.SR.24H GT SCH (09:06)
[2019-03-16] MEDS: PANTOPRAZOLE 40 MG/PACK PACK GT SCH (09:06)
[2019-03-16] MEDS: ASCORBIC ACID 500 MG TABLET GT SCH (09:06)
[2019-03-16] MEDS: SENNOSIDES 8.6 MG TABLET GT SCH (09:06)
[2019-03-16] MEDS: SEVELAMER CARBONATE 0.8 GM POWD.PACK PO SCH (09:06)
[2019-03-16] MEDS: HYDROGEL DRESSING 90 GM TUBE TP SCH (09:07)
[2019-03-16] MEDS: AMLODIPINE BESYLATE 5 MG TABLET GT SCH (09:07)
[2019-03-16] MEDS: LOSARTAN POTASSIUM 25 MG TABLET GT SCH (09:07)
[2019-03-16] MEDS: PROSOURCE / PROSTAT (PYXIS) 30 ML UDC GT SCH ×2 (09:07→12:30)
[2019-03-16] MEDS: CHOLESTYRAMINE/ASPARTAME 4 G/PKT PACKET GT SCH (09:23)
--- NOTE | 2019-03-16 09:26 | NUR ---
CIRCLE CUTTING SAW OPERATOR NOTE SEEN BY BONNIE GODOY RN SAFETY AIDE O TO D\C TO SNF ,NO BLEEDING AT HD CATH AT THIS TIME
--- NOTE | 2019-03-16 11:45 | NUR ---
NURSING SPECIALIST NOTE SEEN BY DR FAUST OFFICE SERVICES SPECIALIST ,OK TO D\C TO SNF
[2019-03-16 12:00] VITALS: BP 137/76
--- NOTE | 2019-03-16 13:22 | NUR ---
public safety telecommunicator note called to snf ,report given, spoke with caprice tobin also called daughter paula aware that patent will be discharge to snf
[2019-03-16] MEDS ORDERED: ERGOCALCIFEROL (VITAMIN D 2) 50,000 UNIT CAPSULE GT SCH (14:00)
[2019-03-16 14:09] VITALS: BP 108/25
--- NOTE | 2019-03-16 15:10 | NUR ---
[employer]AL [employer] VICE PRESIDENT NOTE AMBULANCE ARRIVED, REPORT GIVEN,TELE REMOVED HL ON LT HAND REMOVED. NO BLEEDING NOTED , NO BELONGING NOTED , RT FROM AMBULANCE AT BEDSIDE Addendum: 03/16/19 at 1527 by OSWALDO PASTRANA RN PATIENT LEFT HOSPITAL WITH STABLE CONDITION
== END 2019-03-16 15:30 | DRG 314 ==
LOC: ER 08:55 → TELE-TD 12:42 → TELE1 21:04
PROVIDERS: ADMIT Nurse Practitioner Acute Care; ATTEND Nurse Practitioner Acute Care
PROC: 5A1945Z Respiratory Ventilation, 24-96 Consecutive Hours (ICD-10-PCS; principal; 2019-03-13)
DX: T82.838A Hemorrhage due to vascular prosthetic devices, implants and grafts, initial encounter (principal); N18.6 End stage renal disease; Z99.11 Dependence on respirator [ventilator] status; I50.22 Chronic systolic (congestive) heart failure; E87.1 Hypo-osmolality and hyponatremia; I13.2 Hypertensive heart and chronic kidney disease with heart failure and with stage 5 chronic kidney disease, or end stage renal disease; J96.11 Chronic respiratory failure with hypoxia; G93.40 Encephalopathy, unspecified; Z68.41 Body mass index [BMI] 40.0-44.9, adult; Y84.1 Kidney dialysis as the cause of abnormal reaction of the patient, or of later complication, without mention of misadventure at the time of the procedure; M19.90 Unspecified osteoarthritis, unspecified site; Z93.0 Tracheostomy status; Z93.1 Gastrostomy status; Z86.73 Personal history of transient ischemic attack (TIA), and cerebral infarction without residual deficits; G40.909 Epilepsy, unspecified, not intractable, without status epilepticus; E11.22 Type 2 diabetes mellitus with diabetic chronic kidney disease; E87.5 Hyperkalemia; Z89.511 Acquired absence of right leg below knee; Z99.2 Dependence on renal dialysis; Z74.01 Bed confinement status; M81.0 Age-related osteoporosis without current pathological fracture; R13.10 Dysphagia, unspecified; I25.10 Atherosclerotic heart disease of native coronary artery without angina pectoris; E78.5 Hyperlipidemia, unspecified; E11.51 Type 2 diabetes mellitus with diabetic peripheral angiopathy without gangrene; D64.9 Anemia, unspecified; Z79.4 Long term (current) use of insulin; Z79.899 Other long term (current) drug therapy; Z79.51 Long term (current) use of inhaled steroids; Z79.01 Long term (current) use of anticoagulants; E66.01 Morbid (severe) obesity due to excess calories
CPT/HCPCS: 31720; 36415; 71045-TC; 74018; 80048-TC; 80061-TC; 82962-TC; 83605-TC; 83735-TC; 84100-TC; 84443-TC; 85025-TC; 85027-TC; 85730-TC; 86704; 86706; 87081-TC; 87340; 90935-TC; 94002-TC; 94003-TC; 94760-TC; 94762-TC; 94799-TC; A4217; A6248; A6253; G0378; J1815; J1953

== ENCOUNTER 2019-04-03 09:44 | Emergency (ER) | payer MEDICARE, OTHER ==
[~2019-04-03] VITALS: Ht 175.3 cm; Wt 117.0 kg
[~2019-04-03 09:44] MED LIST changes: +ACET160E36 GT; +ASCORBIC ACID GT; +CALC-343 GT; +EPOE1VIA15 SQ; +GLUC1KIT IM; +HEPA500013 SQ; -HYDR-4384 GT; +MIDO10TA GT; +OMEP40CA13 GT; -SENN-168 GT; +SENN-261 GT; +SEVE0.8P3 PO; +ZINC100T2 GT
--- NOTE | 2019-04-03 09:59 | NUR ---
PT [facility] FROM [facility] C/O BLEEDING CATH SITE. PT HAS L FEMORAL FRANCIS CATH WITH SCANT DRIED BLOOD AROUND THE SITE. NOTED A FEW DROPS OF BLOOD ON THE GUAZE DRESSING BUT NO ACTIVE BLEEDING NOTED. NAD NOTED. PT WAS ABLE TO COMPLETE HD TODAY. IN ER BED 10 ON ON MONITOR. VENT SETTINGS REMAIN THE SAME INTENSIVE CARE NURSE, PLACED ON VENT BY RT.
--- NOTE | 2019-04-03 10:00 | NUR ---
RT NOTE: PATIENT RECEIVED IN ER WITH PORTEX #8 TRACH AND PLACED ON PB 840 VENT. SETTINGS:AC 12. WV=203,FIO2=40%, PEEP+5. ALARMS SET AND AUDIBLE. SUCTIONED LARGE AMOUNT OF YELLOW THICK SECRETIONS. VENT PLUGGED INTO RED OUTLET. AMBU BAG AT [facility].
--- NOTE | 2019-04-03 10:24 | NUR ---
CALLED [facility] FOR TRANSFER TO [facility]. ETA 1200.
[2019-04-03 11:09] VITALS: BP 168/103
--- NOTE | 2019-04-03 11:12 | NUR ---
pt discharged to [facility] in stable condition, NAD noted. new dressing applied. RT from [facility] present for transport.
== END 2019-04-03 11:14 ==
LOC: ER 09:45
DX: T82.838A Hemorrhage due to vascular prosthetic devices, implants and grafts, initial encounter (principal); E11.22 Type 2 diabetes mellitus with diabetic chronic kidney disease; I12.0 Hypertensive chronic kidney disease with stage 5 chronic kidney disease or end stage renal disease; N18.6 End stage renal disease; Z99.2 Dependence on renal dialysis; Z89.511 Acquired absence of right leg below knee; Z88.1 Allergy status to other antibiotic agents; Z79.4 Long term (current) use of insulin; Z79.899 Other long term (current) drug therapy